=== PATIENT | male | born 1945 | race Caucasian/White ===

== ENCOUNTER 2020-11-11 08:23 | Outpatient (REF) | payer MEDICARE, SELFPAY ==
[2020-11-11 11:35] LABS: Hematocrit 45.9 % (42-52); Hemoglobin 15.2 g/dl (14.0-18.0); Mean Corpuscular HGB Conc 33.1 g/dl (31.0-36.0); Mean Corpuscular Hemoglobin 29.6 pg (27.0-33.0); Mean Corpuscular Volume 89.5 fL (80-98); Mean Platelet Volume 11.4 fL (9.4-12.4); Platelet Count 192 X10*3/uL (160-400); Red Blood Count 5.13 X10*6/uL (4.60-5.80); Red Cell Distribution Width 12.5 % (11.0-16.0); White Blood Count 8.5 X10*3/uL (4.8-10.8)
[2020-11-11 11:59] LABS: Alanine Aminotransferase 13 U/L (0-40); Albumin Level 4.3 g/dL (3.5-5.0); Alkaline Phosphatase 148 U/L (39-117); Anion Gap 14 (12-20); Aspartate Amino Transferase 15 U/L (5-37); Bilirubin Direct 0.4 mg/dL (0.0-0.5); Bilirubin Total 0.9 mg/dL (0.0-1.0); Blood Urea Nitrogen 28 mg/dL (9-16); Calcium 9.3 mg/dL (8.4-10.2); Carbon Dioxide 25 mmol/L (22-29); Chloride 107 mmol/L (96-108); Cholesterol 122 mg/dL; Estimated Glomerular Filt Rate 54; Glucose Random 100 mg/dL (60-115); HDL Cholesterol 32 mg/dL; LDL Cholesterol Calculated 71 mg/dl; Potassium 4.2 mmol/L (3.3-5.1); Sodium 142 mmol/L (135-145); Total Protein 7.1 g/dL (6.5-8.0); Triglycerides 98 mg/dL
[2020-11-11 12:06] LABS: Thyroid Stimulating Hormone 2.91 uIU/mL (0.32-4.0)
[2020-11-12 20:13] LABS: Folate 6.7 ng/mL (> or = 4.0); Vitamin B12 891 pg/mL (200-900)
[2020-11-15 13:17] LABS: Vitamin D 25-OH, D2 <4 ng/mL; Vitamin D 25-OH, D3 19 ng/mL; Vitamin D 25-OH, Total 19 ng/mL (30-100)
== END 2020-11-11 08:24 | disposition home or self-care (01) ==
LOC: HO.HMGCLDS 08:23
PROVIDERS: Absent Provider Internal Medicine Cardiovascular Disease; PCP Internal Medicine; Visit Provider Internal Medicine
DX: I10 Essential (primary) hypertension (principal)
CPT/HCPCS: 36415; 80048; 80061; 80076; 82306; 82607; 82746; 84443; 85027

== ENCOUNTER 2020-12-03 08:28 | Outpatient (REF) | payer MEDICARE, SELFPAY ==
--- NOTE | ~2020-12-03 | US_ITS ---
EXAMINATION: US ABDOMEN COMPLETE CLINICAL INFORMATION: Abnormal liver enzymes. COMPARISON: None. TECHNIQUE: Real-time imaging of the abdominal viscera. Technically difficult study secondary to bowel gas and body habitus. FINDINGS: PANCREAS: The pancreas appears heterogeneous and echogenic but no focal lesion seen. There is probably mild enlargement of the pancreas. The pancreatic duct measures 0.2 cm. ABDOMINAL AORTA: There is mild dilated abdominal aorta measuring 3.7 x 4.1 cm in the distal segment. The patent lumen measures 2.2 x 2.3 cm. The left common iliac artery measures 2.6 x 2.5 cm and right common iliac artery measures 2.8 x 2.8 cm. The proximal and the mid abdominal aorta appears normal caliber. Peak systolic velocity mid abdominal aorta measures 34.4 mL. INFERIOR VENA CAVA: Visualized portions are normal. LIVER: The left hepatic lobe is limited in evaluation secondary to gas. The liver is normal in size. The liver contour is normal. Parenchymal echogenicity is normal. No focal hepatic lesion. There is no intrahepatic biliary duct dilatation seen. GALLBLADDER: The nonmobile echogenic polyp along the anterior gallbladder wall measuring 0.4 x 0.5 x 0.3 cm. No echogenic stones seen. The wall thickness is 0.3 cm. COMMON BILE DUCT: Normal in caliber measuring 0.32 cm in diameter. RIGHT KIDNEY: Normal. No hydronephrosis. No renal calculi or focal parenchymal lesions. The kidney measures 10.6 cm in maximum dimension. LEFT KIDNEY: Normal. No hydronephrosis. No renal calculi or focal parenchymal lesions. The kidney measures 10.6 cm in maximum dimension. SPLEEN: Normal. The spleen measures 9.8 cm in maximum dimension. FREE FLUID: None. US/US abdomen complete IMPRESSION: Small polyp along the anterior gallbladder wall. No echogenic stones seen. Borderline gallbladder wall thickness. Distal abdominal aortic aneurysm extending into the right and left common iliac arteries. There is significant thrombus in the aneurysmal segment with the true lumen measuring 2.2 x 2.3 cm and aneurysm in distal abdominal aorta measuring 3.7 x 4.1 cm. Slightly heterogenous and mildly enlarged pancreas. Correlate with serum amylase and lipase levels.
== END 2020-12-03 08:29 | disposition home or self-care (01) ==
LOC: HO.HMGCX 08:28
PROVIDERS: Visit Provider Internal Medicine
DX: R74.8 Abnormal levels of other serum enzymes (principal)
CPT/HCPCS: 76700

== ENCOUNTER → 2020-12-18 09:12 | Outpatient (BNVA) | payer MEDICARE, SELFPAY | PROVIDERS: Visit Provider Urology | DX: Z13.9 Encounter for screening, unspecified (principal); N40.1 Benign prostatic hyperplasia with lower urinary tract symptoms; N13.8 Other obstructive and reflux uropathy | CPT/HCPCS: 51798; 81002; 99212 ==

== ENCOUNTER 2021-05-31 06:30 | Outpatient (REF) | payer MEDICARE, SELFPAY ==
[2021-05-31 07:45] LABS: Hematocrit 43.6 % (42-52); Hemoglobin 14.5 g/dl (14.0-18.0); Mean Corpuscular HGB Conc 33.3 g/dl (31.0-36.0); Mean Corpuscular Hemoglobin 29.7 pg (27.0-33.0); Mean Corpuscular Volume 89.2 fL (80-98); Mean Platelet Volume 10.7 fL (9.4-12.4); Platelet Count 182 X10*3/uL (160-400); Red Blood Count 4.89 X10*6/uL (4.60-5.80); Red Cell Distribution Width 12.8 % (11.0-16.0); White Blood Count 8.4 X10*3/uL (4.8-10.8)
[2021-05-31 08:22] LABS: Alanine Aminotransferase 10 U/L (0-40); Alkaline Phosphatase 145 U/L (39-117); Anion Gap 13 (12-20); Aspartate Amino Transferase 15 U/L (5-37); Bilirubin Direct 0.4 mg/dL (0.0-0.5); Bilirubin Total 0.7 mg/dL (0.0-1.0); Blood Urea Nitrogen 25 mg/dL (9-16); Calcium 9.3 mg/dL (8.4-10.2); Carbon Dioxide 24 mmol/L (22-29); Chloride 109 mmol/L (96-108); Cholesterol 114 mg/dL; Estimated Glomerular Filt Rate 44; Glucose Random 95 mg/dL (60-115); HDL Cholesterol 31 mg/dL; LDL Cholesterol Calculated 65 mg/dl; Potassium 4.3 mmol/L (3.3-5.1); Sodium 142 mmol/L (135-145); Total Protein 6.4 g/dL (6.5-8.0); Triglycerides 92 mg/dL
[2021-05-31 08:43] LABS: Prostate Specific Antigen Scr 1.85 ng/mL (<0.05-4.0); Thyroid Stimulating Hormone 3.36 uIU/mL (0.32-4.0)
== END 2021-05-31 06:31 | disposition home or self-care (01) ==
LOC: HO.LAB 06:30
PROVIDERS: PCP Internal Medicine; Visit Provider Internal Medicine
DX: Z12.5 Encounter for screening for malignant neoplasm of prostate (principal); E78.01 Familial hypercholesterolemia; I10 Essential (primary) hypertension; I25.10 Atherosclerotic heart disease of native coronary artery without angina pectoris; N40.0 Benign prostatic hyperplasia without lower urinary tract symptoms
CPT/HCPCS: 36415; 80048; 80061; 80076; 84153; 84443; 85027

== ENCOUNTER → 2021-06-22 10:50 | Outpatient (BNVA) | payer MEDICARE, SELFPAY | PROVIDERS: PCP Internal Medicine; Visit Provider Urology | DX: Z13.89 Encounter for screening for other disorder (principal) | CPT/HCPCS: Q3014 ==

== ENCOUNTER 2021-11-29 06:41 | Outpatient (REF) | payer MEDICARE, SELFPAY ==
[2021-11-29 07:27] LABS: Hematocrit 44.7 % (42.0-52.0); Hemoglobin 14.4 g/dl (14.0-18.0); Mean Corpuscular HGB Conc 32.2 g/dl (31.0-36.0); Mean Corpuscular Hemoglobin 29.1 pg (27.0-33.0); Mean Corpuscular Volume 90.5 fL (80.0-98.0); Mean Platelet Volume 10.6 fL (9.4-12.4); Platelet Count 192 X10*3/uL (160-400); Red Blood Count 4.94 X10*6/uL (4.60-5.80); Red Cell Distribution Width 12.7 % (11.0-16.0); White Blood Count 9.2 X10*3/uL (4.8-10.8)
[2021-11-29 08:01] LABS: Appearance Urine CLEAR; Color Urine YELLOW; Glucose Urine UA NEG (NEG); Leukocyte Esterase Urine NEG (NEG); Nitrite Urine NEG (NEG); Specific Gravity - Urine >= 1.030 (1.005-1.025); Urine Blood NEG (NEG); Urine Ketones NEG (NEG); Urine Protein TRACE MG/DL (NEG-TRACE)
[2021-11-29 08:34] LABS: Alanine Aminotransferase 13 U/L (0-40); Albumin Level 3.9 g/dL (3.5-5.0); Alkaline Phosphatase 159 U/L (39-117); Anion Gap 14 (12-20); Aspartate Amino Transferase 16 U/L (5-37); Bilirubin Direct 0.4 mg/dL (0.0-0.5); Blood Urea Nitrogen 24 mg/dL (9-16); Calcium 9.1 mg/dL (8.4-10.2); Carbon Dioxide 24 mmol/L (22-29); Chloride 109 mmol/L (96-108); Cholesterol 109 mg/dL; Estimated Glomerular Filt Rate 45; Glucose Random 97 mg/dL (60-115); HDL Cholesterol 27 mg/dL; LDL Cholesterol Calculated 63 mg/dl; Potassium 4.3 mmol/L (3.3-5.1); Sodium 143 mmol/L (135-145); Total Protein 6.8 g/dL (6.5-8.0); Triglycerides 99 mg/dL
[2021-11-29 08:42] LABS: Prostate Specific Antigen Scr 1.66 ng/mL (<0.05-4.0); Thyroid Stimulating Hormone 2.73 uIU/mL (0.32-4.0)
== END 2021-11-29 06:42 | disposition home or self-care (01) ==
LOC: HO.LAB 06:41
PROVIDERS: PCP Internal Medicine; Visit Provider Internal Medicine
DX: Z12.5 Encounter for screening for malignant neoplasm of prostate (principal); E78.01 Familial hypercholesterolemia; I10 Essential (primary) hypertension; I25.10 Atherosclerotic heart disease of native coronary artery without angina pectoris; N40.0 Benign prostatic hyperplasia without lower urinary tract symptoms; R74.8 Abnormal levels of other serum enzymes
CPT/HCPCS: 36415; 80048; 80061; 80076; 81003; 84153; 84443; 85027

== ENCOUNTER → 2021-12-21 14:24 | Outpatient (BNVA) | payer MEDICARE, SELFPAY | PROVIDERS: PCP Internal Medicine; Visit Provider Urology | DX: N40.0 Benign prostatic hyperplasia without lower urinary tract symptoms (principal); Z79.899 Other long term (current) drug therapy | CPT/HCPCS: 51798; 99212 ==

== ENCOUNTER 2022-06-06 06:55 | Outpatient (REF) | payer MEDICARE, SELFPAY ==
[2022-06-06 07:45] LABS: Hematocrit 41.4 % (42.0-52.0); Mean Corpuscular HGB Conc 33.8 g/dl (31.0-36.0); Mean Corpuscular Volume 88.7 fL (80.0-98.0); Mean Platelet Volume 10.9 fL (9.4-12.4); Platelet Count 176 X10*3/uL (160-400); Red Blood Count 4.67 X10*6/uL (4.60-5.80); Red Cell Distribution Width 12.7 % (11.0-16.0); White Blood Count 8.7 X10*3/uL (4.8-10.8)
[2022-06-06 07:48] LABS: Appearance Urine Clear; Color Urine Yellow; Glucose Urine UA Negative (Negative); Leukocyte Esterase Urine Trace (Negative); Nitrite Urine Negative (Negative); PH 5.5 (5.0-9.0); Specific Gravity - Urine 1.015 (1.005-1.025); UMIC TRIGGER UA YES; Urine Blood Negative (Negative); Urine Ketones Negative (Negative); Urine Protein Negative (Neg-Trace)
[2022-06-06 07:54] LABS: Bacteria Urine None Seen (None Seen); Hyaline Casts Urine 0-2 /LPF (0-2); RBC Urine 0-2 /HPF (0-2); Squamous Epithelial Cell Urine 0-2 /HPF (0-2); WBC Urine 0-5 /HPF (0-5)
[2022-06-06 08:18] LABS: Alanine Aminotransferase 20 U/L (0-40); Albumin Level 4.2 g/dL (3.5-5.0); Alkaline Phosphatase 157 U/L (39-117); Anion Gap 17 (12-20); Aspartate Amino Transferase 15 U/L (5-37); Bilirubin Direct 0.6 mg/dL (0.0-0.5); Bilirubin Total 1.7 mg/dL (0.0-1.0); Blood Urea Nitrogen 29 mg/dL (9-16); Calcium 9.4 mg/dL (8.4-10.2); Carbon Dioxide 22 mmol/L (22-29); Chloride 106 mmol/L (96-108); Cholesterol 115 mg/dL; Estimated Glomerular Filt Rate 37; Glucose Random 93 mg/dL (60-115); HDL Cholesterol 27 mg/dL; LDL Cholesterol Calculated 61 mg/dl; Potassium 4.5 mmol/L (3.3-5.1); Sodium 140 mmol/L (135-145); Total Protein 6.9 g/dL (6.5-8.0); Triglycerides 138 mg/dL
[2022-06-06 08:32] LABS: Prostate Specific Antigen Scr 1.86 ng/mL (<0.05-4.0)
[2022-06-06 08:41] LABS: Prostate Specific Antigen 1.81 ng/mL (<0.05-4.0); Thyroid Stimulating Hormone 3.16 uIU/mL (0.32-4.0)
== END 2022-06-06 06:56 | disposition home or self-care (01) ==
LOC: HO.LAB 06:55
PROVIDERS: Urology; PCP Internal Medicine; Referring Provider Internal Medicine Cardiovascular Disease; Visit Provider Internal Medicine
DX: Z12.5 Encounter for screening for malignant neoplasm of prostate (principal); N13.8 Other obstructive and reflux uropathy; N40.1 Benign prostatic hyperplasia with lower urinary tract symptoms; E78.01 Familial hypercholesterolemia; I10 Essential (primary) hypertension; I25.10 Atherosclerotic heart disease of native coronary artery without angina pectoris
CPT/HCPCS: 36415; 80048; 80061; 80076; 81001; 84153; 84443; 85027

== ENCOUNTER 2022-12-06 07:00 | Outpatient (REF) | payer MEDICARE, SELFPAY ==
[2022-12-06 07:37] LABS: Hematocrit 44.7 % (42.0-52.0); Hemoglobin 14.4 g/dl (14.0-18.0); Mean Corpuscular HGB Conc 32.2 g/dl (31.0-36.0); Mean Corpuscular Hemoglobin 29.2 pg (27.0-33.0); Mean Corpuscular Volume 90.7 fL (80.0-98.0); Mean Platelet Volume 11.1 fL (9.4-12.4); Platelet Count 182 X10*3/uL (160-400); Red Blood Count 4.93 X10*6/uL (4.60-5.80); Red Cell Distribution Width 12.7 % (11.0-16.0)
[2022-12-06 07:52] LABS: Appearance Urine Clear; Color Urine Yellow; Glucose Urine UA Negative (Negative); Leukocyte Esterase Urine Negative (Negative); Nitrite Urine Negative (Negative); Specific Gravity - Urine 1.015 (1.005-1.025); Urine Blood Negative (Negative); Urine Ketones Negative (Negative); Urine Protein Negative (Neg-Trace)
[2022-12-06 08:24] LABS: Alanine Aminotransferase 12 U/L (0-40); Albumin Level 3.9 g/dL (3.5-5.0); Alkaline Phosphatase 155 U/L (39-117); Anion Gap 14 (12-20); Aspartate Amino Transferase 16 U/L (5-37); Bilirubin Direct 0.3 mg/dL (0.0-0.5); Blood Urea Nitrogen 24 mg/dL (9-16); Calcium 9.2 mg/dL (8.4-10.2); Carbon Dioxide 25 mmol/L (22-29); Chloride 109 mmol/L (96-108); Cholesterol 109 mg/dL; Estimated Glomerular Filt Rate 42; Glucose Random 100 mg/dL (60-115); HDL Cholesterol 30 mg/dL; LDL Cholesterol Calculated 59 mg/dl; Potassium 4.5 mmol/L (3.3-5.1); Sodium 143 mmol/L (135-145); Total Protein 6.5 g/dL (6.5-8.0); Triglycerides 104 mg/dL
[2022-12-06 08:43] LABS: Thyroid Stimulating Hormone 3.55 uIU/mL (0.32-4.0)
== END 2022-12-06 07:01 | disposition home or self-care (01) ==
LOC: HO.LAB 07:00
PROVIDERS: PCP Internal Medicine; Visit Provider Internal Medicine
DX: R74.8 Abnormal levels of other serum enzymes (principal); I25.10 Atherosclerotic heart disease of native coronary artery without angina pectoris; I10 Essential (primary) hypertension; E78.01 Familial hypercholesterolemia
CPT/HCPCS: 36415; 80048; 80061; 80076; 81003; 84443; 85027

== ENCOUNTER → 2022-12-22 08:18 | Outpatient (BNVA) | payer MEDICARE, SELFPAY | PROVIDERS: PCP Internal Medicine; Visit Provider Urology | DX: N40.0 Benign prostatic hyperplasia without lower urinary tract symptoms (principal) | CPT/HCPCS: 51798; 99212 ==

== ENCOUNTER 2023-06-08 08:47 | Outpatient (AMB) | payer MEDICARE, SELFPAY ==
--- NOTE | 2023-06-08 08:57 | MHC.PC.OV ---
Vital Signs 06/08/23 08:58 Height 6 ft 1 in Weight 213 lb 4 oz BMI 28.1 BP 112/72 Blood Pressure Location Lt brachial Position Sitting Intake Visit Reasons: 6mth f/u Intake Note: Patient is here to follow up on HTN. 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 [employer] Fruit Crop Farmer: Present Accompanied by: Spouse Allergies No Known Allergies [No Known Allergies*] Allergy (Verified 06/08/23 08:58) Tobacco use date assessed: 06/08/23 Fall risk assessment: No Falls in past year Last assessed Fall Risk: 06/08/23 Dental Screening Dental Screen Date: 06/08/23 Did you have a dental visit in the last 12 months?: Yes Did you have a dental problem in the last 6 months where you did not have access to dental care?: No Was dental information given to patient?: Patient has dentist HPI 6mth f/u HPI Details 77-year-old male presents to the office to discuss his chronic medical conditions. Patient is at baseline state of health. He is able to function and do all activities of daily living. He is able to drive at night. Independently he is able to take care of his personal hygiene. Blood work from the past has shown a slightly elevated creatinine and liver function tests. [facility] Medical History Infrarenal abdominal aortic aneurysm (AAA) without rupture Peripheral arterial occlusive disease Coronary artery disease Benign prostate hyperplasia Familial hypercholesterolemia Essential (primary) hypertension Surgical History History of tonsillectomy History of angioplasty History of cataract surgery S/P triple vessel bypass Family History Mother No problems noted. Father No problems noted. Other Mental health disorder Social History Housing: House Alcohol intake: current Alcohol intake frequency: does not drink Patient Tobacco Use Status: Former Tobacco user (12 years ago) Quit Date: 12 years ago Tobacco use type: Cigarette Years Smoked: 12 years e-Cigarette/Vaping Use: Never Used Second Hand Smoke Exposure: No service: Yes Current occupational status: retired Cognitive needs: No Hearing needs: No Vision needs: Yes (reading glasses) Questionnaire Thrive Questionnaire Date Thrive assessed: 12/01/22 ALIX-7 AMB Questionnaire ALIX-7 Date ALIX - 7 assessed: 12/01/22 Source: Developed by Drs. Heriberto Odom, Sobeida Abbott, Chris López and colleagues, with an educational tana from [employer]. Physical exam (Primary Care) Vital Signs: Last Vital Signs BP 112/72 06/08/23 08:58 Care Plan Goal for BP management: Blood pressure is stable. Continue medications at same dosage. BMI result Body Mass Index 28.1 Tobacco/Smoking Status: Tobacco use Status Tobacco use date assessed 06/08/23 06/08/23 09:00 Patient Tobacco Use Status Former Tobacco user (12 06/08/23 09:00 years ago) Tobacco use type Cigarette 06/08/23 09:00 e-Cigarette/Vaping Use Never Used 06/08/23 09:00 Thrive Assessment: Date of Thrive Assessment Date Thrive assessed 12/01/22 06/08/23 09:00 Const General: cooperative and healthy appearing Nutritional Appearance: well nourished Orientation/consciousness: patient oriented x3 Limitations: no limitations HENMT Head: Yes normal to inspection Eyes General: appearance normal, both eyes and all related structures Neck Neck: Yes normal visual inspection Chest Chest palpation & inspection: normal palpation of entire chest wall Resp Effort & Inspection: normal respiratory effort Neuro General: patient oriented x3 Assessment and Plan Assessment & Plan (1) Infrarenal abdominal aortic aneurysm (AAA) without rupture: Code(s): I71.43 - Infrarenal abdominal aortic aneurysm, without rupture Plan: Condition is stable. (2) Peripheral arterial occlusive disease: Code(s): I77.9 - Disorder of arteries and arterioles, unspecified Plan: Condition is stable. (3) Coronary artery disease: Code(s): I25.10 - Atherosclerotic heart disease of [place] coronary artery without angina pectoris Plan: Patient was advised to discuss with the news correspondent at his next appointment if he should continue taking Plavix. Patient is having mild renal insufficiency and a repeat blood work has been ordered. (4) Benign prostate hyperplasia: Code(s): N40.0 - Benign prostatic hyperplasia without lower urinary tract symptoms Plan: Continue current medications. (5) Essential (primary) hypertension: Code(s): I10 - Essential (primary) hypertension Plan: Blood pressure is stable. Continue current medications. Coding Level of Care Code Est Pt Level 4 (89276) Diagnoses Infrarenal abdominal aortic aneurysm (AAA) without rupture I71.43 Peripheral arterial occlusive disease I77.9 Coronary artery disease I25.10 Benign prostate hyperplasia N40.0 Essential (primary) hypertension I10
[2023-06-08 08:58] VITALS: BP 112/72; BMI 28.1
== END 2023-06-08 09:31 | disposition home or self-care (01) ==
PROVIDERS: Visit Provider Internal Medicine
DX: I71.43 Infrarenal abdominal aortic aneurysm, without rupture (principal); I77.9 Disorder of arteries and arterioles, unspecified; I10 Essential (primary) hypertension; I25.10 Atherosclerotic heart disease of native coronary artery without angina pectoris; N40.0 Benign prostatic hyperplasia without lower urinary tract symptoms
CPT/HCPCS: 99214

== ENCOUNTER 2023-06-09 06:35 | Outpatient (REF) | payer MEDICARE, SELFPAY ==
[2023-06-09 08:09] LABS: Hematocrit 44.6 % (42.0-52.0); Hemoglobin 14.7 g/dl (14.0-18.0); Mean Corpuscular Hemoglobin 29.8 pg (27.0-33.0); Mean Corpuscular Volume 90.5 fL (80.0-98.0); Mean Platelet Volume 10.8 fL (9.4-12.4); Platelet Count 164 X10*3/uL (160-400); Red Blood Count 4.93 X10*6/uL (4.60-5.80); Red Cell Distribution Width 12.9 % (11.0-16.0); White Blood Count 8.8 X10*3/uL (4.8-10.8)
[2023-06-09 08:40] LABS: Alanine Aminotransferase 13 U/L (0-40); Albumin Level 4.1 g/dL (3.5-5.0); Alkaline Phosphatase 156 U/L (39-117); Anion Gap 13 (12-20); Aspartate Amino Transferase 16 U/L (5-37); Bilirubin Direct 0.3 mg/dL (0.0-0.5); Blood Urea Nitrogen 25 mg/dL (9-16); Calcium 9.6 mg/dL (8.4-10.2); Carbon Dioxide 24 mmol/L (22-29); Chloride 110 mmol/L (96-108); Cholesterol 112 mg/dL (<200); Estimated Glomerular Filt Rate 43; Glucose Random 94 mg/dL (60-115); HDL Cholesterol 32 mg/dL (>40); LDL Cholesterol Calculated 62 mg/dL (<100); Potassium 4.4 mmol/L (3.3-5.1); Sodium 143 mmol/L (135-145); Triglycerides 92 mg/dL (<150)
[2023-06-09 08:46] LABS: Prostate Specific Antigen Scr 2.21 ng/mL (<0.05-4.0)
== END 2023-06-09 06:36 | disposition home or self-care (01) ==
LOC: HO.LAB 06:35
PROVIDERS: PCP Internal Medicine; Referring Provider Internal Medicine Cardiovascular Disease; Visit Provider Internal Medicine
DX: I10 Essential (primary) hypertension (principal); N40.0 Benign prostatic hyperplasia without lower urinary tract symptoms; Z12.5 Encounter for screening for malignant neoplasm of prostate
CPT/HCPCS: 36415; 80048; 80061; 80076; 84153; 85027

== ENCOUNTER 2023-12-04 07:41 | Outpatient (AMB) | payer MEDICARE, SELFPAY ==
[2023-12-04 08:15] VITALS: BP 128/76; PULSE 68; O2SAT 97; BMI 28.0
--- NOTE | 2023-12-04 08:15 | MHC.PC.OV ---
Vital Signs 12/04/23 08:15 Height 6 ft 1 in Weight 212 lb BMI 28.0 BP 128/76 Blood Pressure Location Lt brachial Position Sitting Pulse 68 Pulse Source Pulse Oximeter Pulse Oximetry (%) 97 Oxygen Delivery Method Room Air Intake Visit Reasons: 6mth f/u Allergies No Known Allergies [No Known Allergies*] Allergy (Verified 12/04/23 08:48) Medication List - Last Reconciled 12/04/23 by Avtar Lamar MD aspirin (Adult Low Dose Aspirin) 81 mg PO DAILY atorvastatin 40 mg PO DAILY clopidogrel 75 mg PO DAILY lisinopril 10 mg PO DAILY metoprolol tartrate 25 mg PO BID tamsulosin 0.4 mg PO BEDTIME 90 days vitamin B complex (B Complex-Vitamin B12 tablet) 1 tab PO DAILY Tobacco use date assessed: 12/04/23 Fall risk assessment: No Falls in past year Last assessed Fall Risk: 12/04/23 Dental Screening Dental Screen Date: 12/04/23 Did you have a dental visit in the last 12 months?: Yes Did you have a dental problem in the last 6 months where you did not have access to dental care?: No Was dental information given to patient?: Patient has dentist HPI 6mth f/u HPI Details 78-year-old male presents to the office to discuss his chronic medical conditions. Patient sees his hot saw operator regularly for follow-up on coronary artery disease and infrarenal abdominal aortic aneurysm. He has been advised to take the Plavix indefinitely. He gets the aneurysm monitored serially via ultrasounds. The next 1 is scheduled for March. Patient reports to be in good health and able to do all activities of daily living. He is independent, functional and able to drive. He lives alone with his . Able to take care of all finances at home. [facility] Medical History Infrarenal abdominal aortic aneurysm (AAA) without rupture Peripheral arterial occlusive disease Coronary artery disease Benign prostate hyperplasia Familial hypercholesterolemia Essential (primary) hypertension Surgical History History of tonsillectomy History of angioplasty History of cataract surgery S/P triple vessel bypass Family History Mother No problems noted. Father No problems noted. Other Mental health disorder Social History Housing: House Alcohol intake: current Alcohol intake frequency: does not drink Patient Tobacco Use Status: Former Tobacco user (12 years ago) Quit Date: 12 years ago Tobacco use type: Cigarette Years Smoked: 12 years e-Cigarette/Vaping Use: Never Used Second Hand Smoke Exposure: No service: Yes Current occupational status: retired Cognitive needs: No Hearing needs: No Vision needs: Yes (reading glasses) Questionnaire PHQ-9 Over the last 2 weeks, how often have you been bothered by any of the following problems? 1. Little interest or pleasure in doing things: not at all 2. Feeling down, depressed, or hopeless: not at all 3. Trouble falling or staying asleep, or sleeping too much: not at all 4. Feeling tired or having little energy: not at all 5. Poor appetite or overeating: not at all 6. Feeling bad about yourself - or that you are a failure or have let yourself or your family down: not at all 7. Trouble concentrating on things, such as reading the newspaper or watching television: not at all 8. Moving or speaking so slowly that other people could have noticed. Or the opposite - being so fidgety or restless that you have been moving around a lot more than usual: not at all 9. Thoughts that you would be better off or of hurting yourself in some way: not at all Total score: 0 Depression Screening Interpretation: Negative Depression Screening Done: Yes Source: Developed by Drs. Heriberto Odom, Sobeida Abbott, Chris López and colleagues, with an educational tana from [employer]. Thrive Questionnaire Date Thrive assessed: 12/04/23 I am a: Patient What is your living situation today?: I have a steady place to live Within the past 12 months, did the food you bought not last and you didn't have the money to get more?: Never true Within the past 12 months, did you worry whether your food would run out before you got money to buy more?: Never true Do you have trouble paying for medicines?: No Do you have trouble getting transportation to medical appointments?: No Do you have trouble paying your heating and electricity bill?: No Do you have trouble taking care of your child, family member or friend?: No Do you have trouble with day-to-day activities such as bathing, preparing meals, shopping, managing finances, etc.?: No Are you currently unemployed and looking for a job?: No Are you interested in more education?: No Currently or been in a relationship where the following occur: no concerns reported THRIVE Score: 0 AUDIT C Alcohol Use Questionnaire (AUDIT-C) 1. How often do you have a drink containing alcohol?: Monthly or less 2. How many drinks containing alcohol do you have on a typical day when you are drinking?: 1 or 2 3. How often do you have six or more drinks on one occasion?: Never Total Score: 1 ALIX-7 AMB Questionnaire ALIX-7 Date ALIX - 7 assessed: 12/04/23 Feeling nervous, anxious, or on edge: 0 = Not at all Not being able to stop or control worryin = Not at all Worrying too much about different things: 0 = Not at all Trouble relaxin = Not at all Being so restless that it is hard to sit still: 0 = Not at all Becoming easily annoyed or irritable: 0 = Not at all Feeling afraid as if something awful might happen: 0 = Not at all Total ALIX-7 score (0-4 normal; 5-9 mild; 10-14 moderate; 15-21 severe): 0 Source: Developed by Drs. Heriberto Odom, Sobeida Abbott, Chris López and colleagues, with an educational tana from [employer]. Physical exam (Primary Care) Vital Signs: Last Vital Signs Pulse 68 12/04/23 08:15 BP 128/76 12/04/23 08:15 Pulse Ox 97 12/04/23 08:15 Oxygen Delivery Method Room Air 12/04/23 08:15 Care Plan Goal for BP management: Blood pressure is in range. Continue current medications BMI result Body Mass Index 28.0 Tobacco/Smoking Status: Tobacco use Status Tobacco use date assessed 12/04/23 12/04/23 08:22 Patient Tobacco Use Status Former Tobacco user (12 12/04/23 08:15 years ago) Tobacco use type Cigarette 12/04/23 08:15 e-Cigarette/Vaping Use Never Used 12/04/23 08:15 PHQ-9: PHQ-9 Score PHQ-9: Total score 0 12/04/23 08:22 Depression Screening Interpretation: Negative Thrive Assessment: Date of Thrive Assessment Date Thrive assessed 12/04/23 12/04/23 08:22 Currently or been in a relationship where the following occur: no concerns reported Advance Care Planning discussion: Exists, not on file Date of discussion: 12/04/23 Who was present: Patient and his Forms completed: Health Care Proxy Time spent: 1-15 minutes, on File Actual minutes spent: 5 Const General: cooperative and healthy appearing Nutritional Appearance: well nourished Orientation/consciousness: patient oriented x3 Limitations: no limitations HENMT Head: Yes normal to inspection Eyes General: appearance normal, both eyes and all related structures Neck Neck: Yes normal visual inspection Chest Chest palpation & inspection: normal palpation of entire chest wall Resp Effort & Inspection: normal respiratory effort Neuro General: patient oriented x3 Assessment and Plan Assessment & Plan (1) Infrarenal abdominal aortic aneurysm (AAA) without rupture: Code(s): I71.43 - Infrarenal abdominal aortic aneurysm, without rupture Plan: An ultrasound of the abdomen has been scheduled by his hot saw operator. Encouraged him to get it done. The size of the aneurysm has been stable (2) Peripheral arterial occlusive disease: Code(s): I77.9 - Disorder of arteries and arterioles, unspecified Plan: Continue the Plavix. (3) Coronary artery disease: Code(s): I25.10 - Atherosclerotic heart disease of [place] coronary artery without angina pectoris Plan: Condition is stable. Continue current medications and exercise regimen. (4) Essential (primary) hypertension: Code(s): I10 - Essential (primary) hypertension Plan: Blood pressure is stable. Continue current medications. Orders: Orders Liver Panel Today I10 - Essential (primary) hypertension, I25.10 - Atherosclerotic heart disease of [place] coronary artery without angina pectoris, I71.43 - Infrarenal abdominal aortic aneurysm, without rupture, I77.9 - Disorder of arteries and arterioles, unspecified Thyroid Stimulating Hormone Today I10 - Essential (primary) hypertension, I25.10 - Atherosclerotic heart disease of [place] coronary artery without angina pectoris, I71.43 - Infrarenal abdominal aortic aneurysm, without rupture, I77.9 - Disorder of arteries and arterioles, unspecified Basic Metabolic Panel Today I10 - Essential (primary) hypertension, I25.10 - Atherosclerotic heart disease of [place] coronary artery without angina pectoris, I71.43 - Infrarenal abdominal aortic aneurysm, without rupture, I77.9 - Disorder of arteries and arterioles, unspecified Complete Blood Count no Diff Today I10 - Essential (primary) hypertension, I25.10 - Atherosclerotic heart disease of [place] coronary artery without angina pectoris, I71.43 - Infrarenal abdominal aortic aneurysm, without rupture, I77.9 - Disorder of arteries and arterioles, unspecified Lipid Panel Today I10 - Essential (primary) hypertension, I25.10 - Atherosclerotic heart disease of [place] coronary artery without angina pectoris, I71.43 - Infrarenal abdominal aortic aneurysm, without rupture, I77.9 - Disorder of arteries and arterioles, unspecified UA and rflx microscopic Today I10 - Essential (primary) hypertension, I25.10 - Atherosclerotic heart disease of [place] coronary artery without angina pectoris, I71.43 - Infrarenal abdominal aortic aneurysm, without rupture, I77.9 - Disorder of arteries and arterioles, unspecified Coding Level of Care Code Est Pt Level 4 (28584) Diagnoses Infrarenal abdominal aortic aneurysm (AAA) without rupture I71.43 Peripheral arterial occlusive disease I77.9 Coronary artery disease I25.10 Essential (primary) hypertension I10 Additional Codes Vital Signs *Quality* - Advance Care Planning discussion: Exists, not on file ([id number]) Vital Signs *Quality* - Time spent: 1-15 minutes, on File ([id number])
== END 2023-12-04 08:43 | disposition home or self-care (01) ==
PROVIDERS: PCP Internal Medicine; Visit Provider Internal Medicine
DX: I71.43 Infrarenal abdominal aortic aneurysm, without rupture (principal); I77.9 Disorder of arteries and arterioles, unspecified; I25.10 Atherosclerotic heart disease of native coronary artery without angina pectoris; I10 Essential (primary) hypertension
CPT/HCPCS: 1123F; 99214

== ENCOUNTER 2023-12-04 08:49 | Outpatient (REF) | payer MEDICARE, SELFPAY ==
[2023-12-04 10:41] LABS: Hematocrit 44.4 % (42.0-52.0); Hemoglobin 14.7 g/dl (14.0-18.0); Mean Corpuscular HGB Conc 33.1 g/dl (31.0-36.0); Mean Corpuscular Hemoglobin 29.7 pg (27.0-33.0); Mean Corpuscular Volume 89.7 fL (80.0-98.0); Mean Platelet Volume 10.4 fL (9.4-12.4); Platelet Count 188 X10*3/uL (160-400); Red Blood Count 4.95 X10*6/uL (4.60-5.80); Red Cell Distribution Width 13.1 % (11.0-16.0); White Blood Count 9.3 X10*3/uL (4.8-10.8)
[2023-12-04 10:43] LABS: Appearance Urine Clear; Color Urine Yellow; Glucose Urine UA Negative (Negative); Leukocyte Esterase Urine Negative (Negative); Nitrite Urine Negative (Negative); Urine Blood Negative (Negative); Urine Ketones Negative (Negative); Urine Protein Negative (Neg-Trace)
[2023-12-04 11:25] LABS: Alanine Aminotransferase 16 U/L (0-40); Albumin Level 4.1 g/dL (3.5-5.0); Alkaline Phosphatase 144 U/L (39-117); Anion Gap 12 (12-20); Aspartate Amino Transferase 17 U/L (5-37); Bilirubin Direct 0.4 mg/dL (0.0-0.5); Blood Urea Nitrogen 22 mg/dL (9-16); Calcium 9.2 mg/dL (8.4-10.2); Carbon Dioxide 25 mmol/L (22-29); Chloride 108 mmol/L (96-108); Cholesterol 104 mg/dL (<200); Estimated Glomerular Filt Rate 45; Glucose Random 99 mg/dL (60-115); HDL Cholesterol 30 mg/dL (>40); LDL Cholesterol Calculated 53 mg/dL (<100); Potassium 4.5 mmol/L (3.3-5.1); Sodium 140 mmol/L (135-145); Total Protein 7.1 g/dL (6.5-8.0); Triglycerides 109 mg/dL (<150)
[2023-12-04 11:46] LABS: Thyroid Stimulating Hormone 2.71 uIU/mL (0.32-4.0)
== END 2023-12-04 08:50 | disposition home or self-care (01) ==
LOC: HO.10HDL 08:49
PROVIDERS: Referring Provider Internal Medicine Cardiovascular Disease; Visit Provider Internal Medicine
DX: I71.43 Infrarenal abdominal aortic aneurysm, without rupture (principal); I77.9 Disorder of arteries and arterioles, unspecified; I10 Essential (primary) hypertension; I25.10 Atherosclerotic heart disease of native coronary artery without angina pectoris
CPT/HCPCS: 36415; 80048; 80061; 80076; 81003; 84443; 85027

== ENCOUNTER 2023-12-21 08:21 | Outpatient (AMB) | payer MEDICARE, SELFPAY ==
--- NOTE | 2023-12-21 08:27 | A.OFFVIS_ITS ---
Intake Intake Visit Reasons: 1Y PVR Intake Note: Patient presents today for a yearly follow up on: BPH w LUTS and PVR Meds- Tamsulosin Allergies to Antibiotic- No Known Allergies Blood Thinner- Aspirin Post Void Residual: 27ml Manager Of Regulatory Affairs Required: No Accompanied by: Self / Same As Patient Allergies No Known Allergies [No Known Allergies*] Allergy (Verified 12/21/23 08:40) HPI HPI Comments History of Present Illness Details Nehemias is a very pleasant male. He is a patient of Dr. Upton. He is seen for the following urologic conditions - lower urinary tract symptoms PVR today 25 cc Effective bladder emptying Continue to do well with tamsulosin Happy with current result BERNY normal UA normal Has shown stability since 2019 Responding well to tamsulosin with minimal progression May follow-up p.r.n. His primary care can manage tamsulosin and we are happy to see him back should his symptoms progress or change Lower urinary tract symptoms Prior retention in early 2019 Has done well since with tamsulosin Last PVR 65 cc Current therapy tamsulosin 0.4 mg daily PSA 06/08 1.85, 12/07 1.6, 06/09 1.8, 06/10 2.2 Previous discussion of prostate procedure however he is on blood thinners for femoral graft [facility] Medical History Infrarenal abdominal aortic aneurysm (AAA) without rupture Peripheral arterial occlusive disease Coronary artery disease Benign prostate hyperplasia Familial hypercholesterolemia Essential (primary) hypertension Surgical History History of tonsillectomy History of angioplasty History of cataract surgery S/P triple vessel bypass Family History Mother No problems noted. Father No problems noted. Other Mental health disorder Social History Housing: House Alcohol intake: current Alcohol intake frequency: does not drink Patient Tobacco Use Status: Former Tobacco user (12 years ago) Quit Date: 12 years ago Tobacco use type: Cigarette Years Smoked: 12 years e-Cigarette/Vaping Use: Never Used Second Hand Smoke Exposure: No service: Yes Current occupational status: retired Cognitive needs: No Hearing needs: No Vision needs: Yes (reading glasses) Review of Systems Const Denies chills and Denies fever(s) Card Reports no additional complaints and Denies syncope Resp Denies cough GI Denies abdominal pain and Denies heartburn Reports as per HPI and Denies change in libido Neuro Denies syncope Psych Denies change in libido Endo Denies change in libido Physical Exam Const General: cooperative, healthy appearing, comfortable and no acute distress Orientation/consciousness: patient oriented x3 HEENT Face and sinus: Yes normal facial exam Mouth: moist mucous membranes Neck Neck: Yes normal visual inspection, Yes full ROM and Yes trachea midline Chest Chest palpation & inspection: normal inspection of the chest Resp Effort & Inspection: normal respiratory effort, able to speak in complete sentences and no respiratory distress GI Inspection: Yes normal to inspection Back/Spine/Pelvis Cervical Spine: normal cervical lordosis Thoracic/Lumbar Spine: thoracic and lumbar spine normal to inspection Skin General skin exam: no rashes or lesions noted Neuro General: patient oriented x3, gait normal, tone normal and moves all extremities Extrem General: Yes normal to inspection and Yes capillary refill normal Office Procedures Post Void Residual Post Residual Void Post Void Residual (PVR): 27 [id number] Void Residual by ultrasound Results AMB Urinalysis, Automated UA Leukoctes 0 Oscar/uL Last Edit by Carmelita Leach CMA on 12/21/23 08 :43 UA Nitrite Negative Last Edit by Carmelita Leach CMA on 12/21/23 08: 43 UA Urobilinogen 0.2 mg/dL Last Edit by Carmelita Leach CMA on 4 08:43 UA Protein 0 mg/dL Last Edit by Carmelita Leach CMA on 12/21/23 08:43 UA pH 6.0 Last Edit by Carmelita Leach CMA on 12/21/23 08:43 UA Blood 0 Damien/uL Last Edit by Carmelita Leach CMA on 12/21/23 08:43 UA Specific [place] 1.010 Last Edit by Carmelita Leach CMA on 08:43 UA Ketone Negative Last Edit by Carmelita Leach CMA on 12/21/23 08:4 3 UA Bilirubin 0 mg/dL Last Edit by Carmelita Leach CMA on 12/21/23 08: 43 UA Glucose 0 mg/dL Last Edit by Carmelita Leach CMA on 12/21/23 08:43 Results Reviewed Results Reviewed: Laboratory Last Values Urine pH (Auto) 6.0 12/21/23 08:41 Specific [place] (Auto) 1.010 12/21/23 08:41 Urine Protein (Auto) 0 mg/dL 12/21/23 08:41 Glucose (UA)(Auto) 0 mg/dL 12/21/23 08:41 Urine Ketones (Auto) Negative 12/21/23 08:41 Urine Blood (Auto) 0 Damien/uL 12/21/23 08:41 Urine Nitrite (Auto) Negative 12/21/23 08:41 Urine Bilirubin (Auto) 0 mg/dL 12/21/23 08:41 Urine Urobilinogen (Auto) 0.2 mg/dL 12/21/23 08:41 Leukocyte Esterase (Auto) 0 Oscar/uL 12/21/23 08:41 Assessment & Plan Assessment & Plan (1) Benign prostate hyperplasia: Code(s): N40.0 - Benign prostatic hyperplasia without lower urinary tract symptoms Plan P.r.n. follow-up Orders: Orders AMB Urinalysis Automated Today R33.9 - Retention of urine, unspecified AMB Post Void Residual by ultrasound Today R33.9 - Retention of urine, unspecified Patient Instructions: Imaging studies, laboratory and physical exam results were discussed and reviewed in detail. No major barriers to patient understanding were identified. An opportunity to ask questions regarding the treatment plan was provided. All questions were answered. The patient expressed understanding and agreement with the above treatment plan. The patient is aware they should contact our office by phone for worsening of their current condition or the appearance of new urologic symptoms. Compliance is encouraged with any medications and followup testing that is ordered. It is a privilege to participate in the urologic care of your patient. If you have any questions or concerns regarding treatment for the above conditions, or other urologic issues, please do not hesitate to contact me. The office telephone contact is [phone]. This note is constructed using voice recognition software. While every effort has been made to ensure accuracy sound effects person errors may have been included. Yours sincerely, Dr Gus Grider MD, [facility] - Urology Providers of Expert, Compassionate Care for the Genitourinary System Coding Level of Care Code Est Pt Level 4 (83671) Diagnoses Benign prostate hyperplasia N40.0 CPT Codes Post Residual Void - PVR CPT Code: 36041-[id number] Void Residual by ultrasound ([id number])
== END 2023-12-21 09:04 | disposition home or self-care (01) ==
PROVIDERS: Visit Provider Urology
DX: N40.0 Benign prostatic hyperplasia without lower urinary tract symptoms (principal); R33.9 Retention of urine, unspecified
CPT/HCPCS: 99213

== ENCOUNTER → 2023-12-21 08:21 | Outpatient (BNVA) | payer MEDICARE, SELFPAY | PROVIDERS: Visit Provider Urology | DX: N40.0 Benign prostatic hyperplasia without lower urinary tract symptoms (principal) | CPT/HCPCS: 51798; 81003; 99212 ==

== ENCOUNTER 2024-06-06 08:43 | Outpatient (AMB) | payer MEDICARE, SELFPAY ==
[2024-06-06 08:59] VITALS: BP 112/62; BMI 27.7
--- NOTE | 2024-06-06 08:59 | A.OFFPC_ITS ---
Vital Signs 06/06/24 08:59 Height 6 ft 1 in Weight 210 lb 2 oz BMI 27.7 BP 112/62 Blood Pressure Location Rt brachial Position Sitting Intake Visit Reasons: 6mth f/u Intake Note: Patient is here to follow up on CAD, BPH, HTN. Expressive Therapist Required: No Foreign Exchange Dealer: Present Accompanied by: Spouse Allergies No Known Allergies [No Known Allergies*] Allergy (Verified 06/06/24 08:59) Tobacco use date assessed: 06/06/24 Fall risk assessment: No Falls in past year Last assessed Fall Risk: 06/06/24 Dental Screening Dental Screen Date: 12/04/23 HPI 6mth f/u HPI Details 78-year-old male presents to the office to discuss his chronic medical conditions. Patient is at baseline state of health. He gets periodic evaluations by the materials planner/production planner for the abdominal aortic aneurysm. Able to function and do all activities of daily living. Compliant with medications. [facility] Medical History Infrarenal abdominal aortic aneurysm (AAA) without rupture Peripheral arterial occlusive disease Coronary artery disease Benign prostate hyperplasia Familial hypercholesterolemia Essential (primary) hypertension Surgical History History of tonsillectomy History of angioplasty History of cataract surgery S/P triple vessel bypass Family History Mother No problems noted. Father No problems noted. Other Mental health disorder Social History Housing: House Alcohol intake: current Alcohol intake frequency: does not drink Patient Tobacco Use Status: Former Tobacco user (12 years ago) Tobacco use type: Cigarette Years Smoked: 12 years e-Cigarette/Vaping Use: Never Used Second Hand Smoke Exposure: Yes service: Yes Current occupational status: retired Cognitive needs: No Hearing needs: No Vision needs: Yes (reading glasses) Questionnaire Thrive Questionnaire Date Thrive assessed: 12/04/23 Are you currently unemployed and looking for a job?: No ALIX-7 AMB Questionnaire ALIX-7 Date ALIX - 7 assessed: 12/04/23 Source: Developed by Drs. Heriberto Odom, Sobeida B.W. Chris Abbott and colleagues, with an educational tana from [employer]. Physical exam (Primary Care) Vital Signs: Last Vital Signs BP 112/62 06/06/24 08:59 BMI result Body Mass Index 27.7 Tobacco/Smoking Status: Tobacco use Status Tobacco use date assessed 06/06/24 06/06/24 09:01 Patient Tobacco Use Status Former Tobacco user (12 06/06/24 09:01 years ago) Tobacco use type Cigarette 06/06/24 09:01 e-Cigarette/Vaping Use Never Used 06/06/24 09:01 Thrive Assessment: Date of Thrive Assessment Date Thrive assessed 12/04/23 06/06/24 09:01 Const General: cooperative and healthy appearing Nutritional Appearance: well nourished Orientation/consciousness: patient oriented x3 Limitations: no limitations HENMT Head: Yes normal to inspection Eyes General: appearance normal, both eyes and all related structures Neck Neck: Yes normal visual inspection Chest Chest palpation & inspection: normal palpation of entire chest wall Resp Effort & Inspection: normal respiratory effort Neuro General: patient oriented x3 Assessment and Plan Assessment & Plan (1) Infrarenal abdominal aortic aneurysm (AAA) without rupture: Code(s): I71.43 - Infrarenal abdominal aortic aneurysm, without rupture Plan: Condition is stable and patient is up-to-date on screening ultrasound. (2) Peripheral arterial occlusive disease: Code(s): I77.9 - Disorder of arteries and arterioles, unspecified Plan: Condition is stable. (3) Abnormal liver enzymes: Code(s): R74.8 - Abnormal levels of other serum enzymes Plan: Blood work has been ordered. Will call with results. (4) Benign prostate hyperplasia: Code(s): N40.0 - Benign prostatic hyperplasia without lower urinary tract symptoms Plan: PSA has been ordered. I will be refilling his prescriptions. (5) Essential (primary) hypertension: Code(s): I10 - Essential (primary) hypertension Plan: Blood pressure is in range. Continue current medications. (6) Familial hypercholesterolemia: Code(s): E78.01 - Familial hypercholesterolemia Plan: LDL is in range. Continue current medications. Orders: Orders Complete Blood Count no Diff Today E78.01 - Familial hypercholesterolemia, I10 - Essential (primary) hypertension, I71.43 - Infrarenal abdominal aortic aneurysm, without rupture, I77.9 - Disorder of arteries and arterioles, unspecified, N40.0 - Benign prostatic hyperplasia without lower urinary tract symptoms, R74.8 - Abnormal levels of other serum enzymes Basic Metabolic Panel Today E78.01 - Familial hypercholesterolemia, I10 - Essential (primary) hypertension, I71.43 - Infrarenal abdominal aortic aneurysm, without rupture, I77.9 - Disorder of arteries and arterioles, unspecified, N40.0 - Benign prostatic hyperplasia without lower urinary tract symptoms, R74.8 - Abnormal levels of other serum enzymes Lipid Panel Today E78.01 - Familial hypercholesterolemia, I10 - Essential (primary) hypertension, I71.43 - Infrarenal abdominal aortic aneurysm, without rupture, I77.9 - Disorder of arteries and arterioles, unspecified, N40.0 - Benig n prostatic hyperplasia without lower urinary tract symptoms, R74.8 - Abnormal levels of other serum enzymes UA and rflx microscopic Today E78.01 - Familial hypercholesterolemia, I10 - Essential (primary) hypertension, I71.43 - Infrarenal abdominal aortic aneurysm, without rupture, I77.9 - Disorder of arteries and arterioles, unspecified, N40.0 - Benign prostatic hyperplasia without lower urinary tract symptoms, R74.8 - Abnormal levels of other serum enzymes Liver Panel Today E78.01 - Familial hypercholesterolemia, I10 - Essential (primary) hypertension, I71.43 - Infrarenal abdominal aortic aneurysm, without rupture, I77.9 - Disorder of arteries and arterioles, unspecified, N40.0 - Benign prostatic hyperplasia without lower urinary tract symptoms, R74.8 - Abnormal levels of other serum enzymes Thyroid Stimulating Hormone Today E78.01 - Familial hypercholesterolemia, I10 - Essential (primary) hypertension, I71.43 - Infrarenal abdominal aortic aneurysm, without rupture, I77.9 - Disorder of arteries and arterioles, unspecified, N40.0 - Benign prostatic hyperplasia without lower urinary tract symptoms, R74.8 - Abnormal levels of other serum enzymes Prostate Specific Antigen Scr Today N40.0 - Benign prostatic hyperplasia without lower urinary tract symptoms Coding Level of Care Code Est Pt Level 4 (32563) Complex EM visit Add On G2211 Diagnoses Infrarenal abdominal aortic aneurysm (AAA) without rupture I71.43 Peripheral arterial occlusive disease I77.9 Abnormal liver enzymes R74.8 Benign prostate hyperplasia N40.0 Essential (primary) hypertension I10 Familial hypercholesterolemia E78.01
== END 2024-06-06 09:59 | disposition home or self-care (01) ==
PROVIDERS: PCP Internal Medicine; Visit Provider Internal Medicine
DX: I71.43 Infrarenal abdominal aortic aneurysm, without rupture (principal); I77.9 Disorder of arteries and arterioles, unspecified; R74.8 Abnormal levels of other serum enzymes; N40.0 Benign prostatic hyperplasia without lower urinary tract symptoms; I10 Essential (primary) hypertension; E78.01 Familial hypercholesterolemia

== ENCOUNTER 2024-06-06 08:43 | Outpatient (REF) | payer MEDICARE, SELFPAY ==
[2024-06-06 10:43] LABS: Hematocrit 43.1 % (42.0-52.0); Hemoglobin 14.4 g/dl (14.0-18.0); Mean Corpuscular HGB Conc 33.4 g/dl (31.0-36.0); Mean Corpuscular Hemoglobin 30.1 pg (27.0-33.0); Mean Platelet Volume 10.4 fL (9.4-12.4); Platelet Count 182 X10*3/uL (160-400); Red Blood Count 4.79 X10*6/uL (4.60-5.80); Red Cell Distribution Width 12.9 % (11.0-16.0)
[2024-06-06 11:17] LABS: Alanine Aminotransferase 15 U/L (0-40); Albumin Level 4.2 g/dL (3.5-5.0); Alkaline Phosphatase 149 U/L (39-117); Anion Gap 10 (12-20); Aspartate Amino Transferase 16 U/L (5-37); Bilirubin Direct 0.3 mg/dL (0.0-0.5); Bilirubin Total 0.9 mg/dL (0.0-1.0); Blood Urea Nitrogen 24 mg/dL (9-16); Calcium 9.6 mg/dL (8.4-10.2); Carbon Dioxide 28 mmol/L (22-29); Chloride 109 mmol/L (96-108); Cholesterol 110 mg/dL (<200); Estimated Glomerular Filt Rate 44; Glucose Random 98 mg/dL (60-115); HDL Cholesterol 35 mg/dL (>40); LDL Cholesterol Calculated 60 mg/dL (<100); Potassium 4.8 mmol/L (3.3-5.1); Sodium 142 mmol/L (135-145); Total Protein 7.3 g/dL (6.5-8.0); Triglycerides 76 mg/dL (<150)
[2024-06-06 11:18] LABS: Appearance Urine Clear; Color Urine Yellow; Glucose Urine UA Negative (Negative); Leukocyte Esterase Urine Negative (Negative); Nitrite Urine Negative (Negative); Specific Gravity - Urine 1.015 (1.005-1.025); Urine Blood Negative (Negative); Urine Ketones Negative (Negative); Urine Protein Negative (Neg-Trace)
[2024-06-06 11:27] LABS: Prostate Specific Antigen Scr 2.35 ng/mL (<0.05-4.0)
[2024-06-06 11:34] LABS: Thyroid Stimulating Hormone 1.99 uIU/mL (0.32-4.0)
== END 2024-06-06 08:44 | disposition home or self-care (01) ==
LOC: HO.LAB 08:43
PROVIDERS: PCP Internal Medicine; Visit Provider Internal Medicine
DX: I71.43 Infrarenal abdominal aortic aneurysm, without rupture (principal); I77.9 Disorder of arteries and arterioles, unspecified; R74.8 Abnormal levels of other serum enzymes; N40.0 Benign prostatic hyperplasia without lower urinary tract symptoms; I10 Essential (primary) hypertension; E78.01 Familial hypercholesterolemia; Z79.899 Other long term (current) drug therapy; Z12.5 Encounter for screening for malignant neoplasm of prostate
CPT/HCPCS: 36415; 80048; 80061; 80076; 81003; 84153; 84443; 85027; 99212

== ENCOUNTER 2024-12-05 12:35 | Outpatient (AMB) | payer MEDICARE, SELFPAY ==
[2024-12-05 12:57] VITALS: BP 138/86; PULSE 87; O2SAT 98; BMI 27.6
--- NOTE | 2024-12-05 12:57 | MHC.PC.OV ---
Vital Signs 12/05/24 12:57 Height 6 ft 1 in Weight 209 lb 4 oz BMI 27.6 BP 138/86 Blood Pressure Location Lt brachial Position Sitting Pulse 87 Pulse Source Pulse Oximeter Pulse Oximetry (%) 98 Oxygen Delivery Method Room Air Intake Visit Reasons: 6 month follow up Flight Operations Dispatch Clerk Required: No Accompanied by: Spouse Allergies No Known Allergies [No Known Allergies*] Allergy (Verified 12/05/24 15:08) Medication List - Last Reconciled 12/05/24 by Zuri Carranza PA-C aspirin (Adult Low Dose Aspirin) 81 mg PO DAILY atorvastatin 40 mg PO DAILY clopidogrel 75 mg PO DAILY lisinopril 10 mg PO DAILY metoprolol tartrate 25 mg PO BID tamsulosin 0.4 mg PO BEDTIME 90 days vitamin B complex (B Complex-Vitamin B12 tablet) 1 tab PO DAILY Tobacco use date assessed: 12/05/24 Fall risk assessment: No Falls in past year Last assessed Fall Risk: 12/05/24 Dental Screening Dental Screen Date: 12/05/24 Did you have a dental visit in the last 12 months?: Yes Did you have a dental problem in the last 6 months where you did not have access to dental care?: No Was dental information given to patient?: Patient has dentist [facility] Medical History (Updated 12/05/24 @ 15:11 by Zuri Carranza PA-C) Colonoscopy refused Follow-up exam, 3-6 months since previous exam CKD (chronic kidney disease) Infrarenal abdominal aortic aneurysm (AAA) without rupture Peripheral arterial occlusive disease Coronary artery disease Benign prostate hyperplasia Familial hypercholesterolemia Essential (primary) hypertension Surgical History History of tonsillectomy History of angioplasty History of cataract surgery S/P triple vessel bypass Family History Mother No problems noted. Father No problems noted. Other Mental health disorder Social History Housing: House Alcohol intake: current Alcohol intake frequency: does not drink Patient Tobacco Use Status: Former Tobacco user (12 years ago) Tobacco use type: Cigarette Years Smoked: 12 years e-Cigarette/Vaping Use: Never Used Second Hand Smoke Exposure: Yes service: Yes Current occupational status: retired Cognitive needs: No Hearing needs: No Vision needs: Yes (reading glasses) Questionnaire PHQ-9 Over the last 2 weeks, how often have you been bothered by any of the following problems? 1. Little interest or pleasure in doing things: not at all 2. Feeling down, depressed, or hopeless: not at all 3. Trouble falling or staying asleep, or sleeping too much: not at all 4. Feeling tired or having little energy: not at all 5. Poor appetite or overeating: not at all 6. Feeling bad about yourself - or that you are a failure or have let yourself or your family down: not at all 7. Trouble concentrating on things, such as reading the newspaper or watching television: not at all 8. Moving or speaking so slowly that other people could have noticed. Or the opposite - being so fidgety or restless that you have been moving around a lot more than usual: not at all 9. Thoughts that you would be better off or of hurting yourself in some way: not at all Total score: 0 Depression Screening Interpretation: Negative Depression Screening Done: Yes 24839 - PHQ-9 Billing: Yes Source: Developed by Drs. Heriberto Odom, Sobeida Abbott, Chris López and colleagues, with an educational tana from [employer]. Thrive Questionnaire Date Thrive assessed: 12/05/24 I am a: Patient What is your living situation today?: I have a steady place to live Within the past 12 months, did the food you bought not last and you didn't have the money to get more?: Never true Within the past 12 months, did you worry whether your food would run out before you got money to buy more?: Never true Do you have trouble paying for medicines?: No Do you have trouble getting transportation to medical appointments?: No Do you have trouble paying your heating and electricity bill?: No Do you have trouble taking care of your child, family member or friend?: No Do you have trouble with day-to-day activities such as bathing, preparing meals, shopping, managing finances, etc.?: No Are you currently unemployed and looking for a job?: No Are you interested in more education?: No Please select the resources that you would like help with: None Currently or been in a relationship where the following occur: No concerns reported THRIVE Score: 0 AUDIT C Alcohol Use Questionnaire (AUDIT-C) 1. How often do you have a drink containing alcohol?: Monthly or less 2. How many drinks containing alcohol do you have on a typical day when you are drinking?: 1 or 2 3. How often do you have six or more drinks on one occasion?: Never Total Score: 1 Score Reviewed/Action Taken: No ALIX-7 AMB Questionnaire ALIX-7 Date ALIX - 7 assessed: 12/05/24 Feeling nervous, anxious, or on edge: 0 = Not at all Not being able to stop or control worryin = Not at all Worrying too much about different things: 0 = Not at all Trouble relaxin = Not at all Being so restless that it is hard to sit still: 0 = Not at all Becoming easily annoyed or irritable: 0 = Not at all Feeling afraid as if something awful might happen: 0 = Not at all Total ALIX-7 score (0-4 normal; 5-9 mild; 10-14 moderate; 15-21 severe): 0 Source: Developed by Drs. Heriberto Odom, Sobeida Abbott, Chris López and colleagues, with an educational tana from [employer]. ALIX-7 Assessment Billing ALIX-7 Assessment Tool: ALIX-7 Assessment 85477 Physical exam (Primary Care) Vital Signs: Last Vital Signs Pulse 87 12/05/24 12:57 BP 138/86 12/05/24 12:57 Pulse Ox 98 12/05/24 12:57 Oxygen Delivery Method Room Air 12/05/24 12:57 Care Plan Goal for BP management: <130/80 at Goal BMI result Body Mass Index 27.6 BMI Assessment/Plan discussion: High BMI High, discussed plan: lifestyle, weight reduction, dietary, physical activity and alcohol moderation Tobacco/Smoking Status: Tobacco use Status Tobacco use date assessed 12/05/24 12/05/24 12:58 Patient Tobacco Use Status Former Tobacco user (12 12/05/24 12:58 years ago) Tobacco use type Cigarette 12/05/24 12:58 e-Cigarette/Vaping Use Never Used 12/05/24 12:58 PHQ-9: PHQ-9 Score PHQ-9: Total score 0 12/05/24 12:58 Depression Screening Interpretation: Negative Thrive Assessment: Date of Thrive Assessment Date Thrive assessed 12/05/24 12/05/24 12:58 Currently or been in a relationship where the following occur: No concerns reported Coding Level of Care Code Est Pt Level 4 (78049) Complex EM visit Add On G2211 Diagnoses Follow-up exam, 3-6 months since previous exam Z09 CKD (chronic kidney disease) N18.9 Infrarenal abdominal aortic aneurysm (AAA) without rupture I71.43 Peripheral arterial occlusive disease I77.9 Coronary artery disease I25.10 Benign prostate hyperplasia N40.0 Familial hypercholesterolemia E78.01 Essential (primary) hypertension I10 Abnormal liver enzymes R74.8 Additional Codes PHQ-9 - 68933 - PHQ-9 Billing: Yes ([id number]) ALIX-7 Assessment Billing - ALIX-7 Assessment Tool: ALIX-7 Assessment 15264 ([id number]) Assessment & Plan Assessment & Plan (1) Follow-up exam, 3-6 months since previous exam: Code(s): Z09 - Encounter for follow-up examination after completed treatment for conditions other than malignant neoplasm Category: Medical (2) CKD (chronic kidney disease): Code(s): N18.9 - Chronic kidney disease, unspecified Category: Medical Plan: Patient was CKD with BUN of 24 and creatinine of 1.52. Condition is chronic and stable continue to monitor. (3) Infrarenal abdominal aortic aneurysm (AAA) without rupture: Code(s): I71.43 - Infrarenal abdominal aortic aneurysm, without rupture Category: Medical Plan: Patient currently being followed by cardiology. Patient currently on aspirin 81 mg daily, atorvastatin 40 mg daily, Plavix 75 mg daily, lisinopril 10 mg daily, metoprolol 25 mg p.o. b.i.d.. Condition is chronic and stable continue to monitor. (4) Peripheral arterial occlusive disease: Code(s): I77.9 - Disorder of arteries and arterioles, unspecified Category: Medical Plan: Patient currently being followed by cardiology. Patient currently on aspirin 81 mg daily, atorvastatin 40 mg daily, Plavix 75 mg daily, lisinopril 10 mg daily, metoprolol 25 mg p.o. b.i.d.. Condition is chronic and stable continue to monitor. (5) Coronary artery disease: Code(s): I25.10 - Atherosclerotic heart disease of [place] coronary artery without angina pectoris Category: Medical Plan: Patient currently being followed by cardiology. Patient currently on aspirin 81 mg daily, atorvastatin 40 mg daily, Plavix 75 mg daily, lisinopril 10 mg daily, metoprolol 25 mg p.o. b.i.d.. Condition is chronic and stable continue to monitor. (6) Benign prostate hyperplasia: Code(s): N40.0 - Benign prostatic hyperplasia without lower urinary tract symptoms Category: Medical Plan: The patient is currently on Tamsulosin 0.4 mg p.o. at bedtime. Condition is chronic and stable continue to monitor. (7) Familial hypercholesterolemia: Code(s): E78.01 - Familial hypercholesterolemia Category: Medical Plan: Triglycerides Goal <150. total cholesterol <200. LDL Goal <100. HDL>40. PATIENT HAD LABS ON 06/06/2024 REVEALED TRIGLYCERIDE 276, TOTAL CHOLESTEROL 110, LDL 60 AND HDL 35. PATIENT TO CONTINUE ATORVASTATIN 40 MG DAILY. CONDITION IS CHRONIC AND STABLE CONTINUE TO MONITOR. (8) Essential (primary) hypertension: Code(s): I10 - Essential (primary) hypertension Category: Medical Plan: BP Goal <130/80. Patient's blood pressure at goal today will continue aspirin 81 mg, atorvastatin 40 mg, Plavix 75 mg daily, lisinopril 10 mg daily, metoprolol 25 mg p.o. b.i.d.. Patient to continue being followed by Cardiology. Condition is chronic and stable continue to monitor. (9) Abnormal liver enzymes: Code(s): R74.8 - Abnormal levels of other serum enzymes Category: Medical Plan: Patient has an elevated alkaline phosphate of 149. Denies any abdominal pain. Condition is chronic and stable continue to monitor. Plan Plan Patient was informed and verbally consented to the use of an ambient scribe for clinic note documentation during this visit. 1. Coronary Artery Disease Continued dual antiplatelet therapy prescribed, with regular acoustical tile drill press operator oversight. 2. Hyperlipidemia Lipid control with atorvastatin is assessed during visits, adjusting based on laboratory results. 3. Chronic Kidney Disease The patient?s chronic kidney disease is monitored through stable lab results, with a nephrology referral arranged for possible medication reassessment. 4. Intrarenal Aortic Aneurysm Ongoing observation, advised in regular specialist evaluations. 5. Disorder of arteries and arterioles, unspecified I77.9 HCC 108 Leg tightness during activity controlled by resting, routine imaging maintained. 6. Raynaud's Syndrome Continuation of observational approach due to unresponsiveness to previous interventions. 7. Benign Prostatic Hyperplasia Managed with ongoing tamulosin therapy. 8. Abnormal levels of other serum enzymes R74.8 Monitoring through periodic liver function tests remains in place, awaiting further analysis if indicated. 9. Hypertension Managed with continued lisinopril and metoprolol therapy, monitoring for long-term complications. Discussion Notes During the consultation, we discussed the stability of chronic kidney disease with a creatinine level of 1.52 mg/dL. The continuation of the current medication regimen was considered appropriate, especially regarding lisinopril?s potential impact, given its longstanding use and efficacy. The patient was advised on possible nephrology consultation for an expert opinion on medication adjustment. The importance of ongoing dual antiplatelet therapy for coronary artery disease prevention was emphasized, aligning with the acoustical tile drill press operator?s recommendations. Options for investigating persistent Raynaud?s symptoms include symptom monitoring due to prior ineffective pharmacological intervention. Laboratory tests were ordered, including CBC, CMP, and others, to evaluate comprehensive health status and necessary adjustments were discussed. Orders: Orders Comprehensive [place]. Panel Fast Today Z00.00 - Encounter for general adult medical examination without abnormal findings Hemoglobin A1c Today Z00.00 - Encounter for general adult medical examination without abnormal findings Lipid Panel Today Z00.00 - Encounter for general adult medical examination without abnormal findings Magnesium Today Z00.00 - Encounter for general adult medical examination without abnormal findings Parathyroid Hormone Intact Today Z00.00 - Encounter for general adult medical examination without abnormal findings Vitamin B12 and Folate Today Z00.00 - Encounter for general adult medical examination without abnormal findings Vitamin B1 Today Z00.00 - Encounter for general adult medical examination without abnormal findings TSH reflex Free T4 Today Z00.00 - Encounter for general adult medical examination without abnormal findings Zinc Today Z00.00 - Encounter for general adult medical examination without abnormal findings C Reactive Protein Today Z00.00 - Encounter for general adult medical examination without abnormal findings Complete Blood Count Auto Diff Today Z00.00 - Encounter for general adult medical examination without abnormal findings Erythrocyte Sedimentation Rate Today Z00.00 - Encounter for general adult medical examination without abnormal findings Liver Panel Today Z00.00 - Encounter for general adult medical examination without abnormal findings Vitamin D 25-OH Total Today Z00.00 - Encounter for general adult medical examination without abnormal findings PSA,Total (Free>4and<10) Today Z00.00 - Encounter for general adult medical examination without abnormal findings Referrals Nephrology Referral N18.9 - Chronic kidney disease, unspecified Patient Instructions: Patient Instructions - Maintain current medication regimen as prescribed. - Schedule and attend nephrology appointment as planned. - Follow up with regular blood work including fasting as advised. - Continue daily physical activity but rest during leg tightness or discomfort. - Report any new or worsening symptoms, specifically unusual leg pain or chest discomfort. - Return for scheduled follow-up appointment in one month. Scribe Plan - Not visible on output: History of Present Illness The patient is an 79-year-old male presenting for a routine six-month follow-up visit. He has a known history of chronic kidney disease with a stable creatinine level of 1.52 mg/dL, unchanged since 2019. The patient has not consulted a knitting tester for this condition, as it is managed by his acoustical tile drill press operator emphasizing stroke prevention via continued Plavix therapy. His medical history is significant for an intrarenal aortic aneurysm without rupture, peripheral arterial occlusive disease, abnormal liver enzymes, coronary artery disease, benign prostatic hyperplasia, hyperlipidemia, and hypertension. He adheres to a structured medication regimen including Plavix, aspirin, atorvastatin, lisinopril, metoprolol, tamulosin, and vitamin B complex. The patient also reports Raynaud?s syndrome, characterized by cold and dark hand extremities. Regular physical activity involves walking daily, though he experiences leg muscle tightening on prolonged walking, relieved briefly by rest. He undergoes leg ultrasounds biannually per acoustical tile drill press operator recommendations due to past cardiac bypass surgery, supervised by Dr. Saleem. Social History - The patient regularly engages in physical exercise, specifically walking almost daily. - He reports adherence to his prescribed medication regimen. Review of Systems - Cardiovascular: Reports leg tightness during walking, resolving with short breaks. - Integumentary: Reports cold and dark hands, likely Raynaud?s phenomenon. Physical Exam Appearance: Alert. Oriented X3. No acute distress. Head: Normal external exam. Normocephalic. Atraumatic. Eyes: Pupils are equal, round, and reactive to light. Extraocular movements intact. Conjunctiva and sclera normal. Eyelids normal. Ears: External auditory canal normal. Tympanic membranes normal. Throat: Pharynx normal. Uvula midline. Moist mucous membranes. Neck: Normal inspection. Neck supple. Full range of motion. No adenopathy. Thyroid Normal. No meningeal signs. No neck mass noted. Cardiovascular: Normal heart rate and rhythm. Heart sound normal. No murmurs noted. Pulses normal throughout. Respiratory: No respiratory distress. Painless inspiration. Breath sounds normal. No wheezes/rales/rhonchi noted. Chest nontender. No accessory muscle usage noted or decreased air movement noted. Abdomen: Soft and nontender. Bowel sounds normal in all 4 quadrants. No distention noted. No organomegaly noted. No visible injury noted. Back: No costovertebral angle tenderness. Full range of motion noted. Skin: Skin warm and dry. Normal skin color. Normal skin turgor. No rashes/lesions/lacerations noted. Hands are dark and cold, likely due to Raynaud's syndrome. Extremities: No lower extremity edema. Extremities exhibit normal range of motion. Extremities nontender. Legs tighten up after walking long distances but recover after rest. Neuro: Oriented X 3. No motor deficit. No sensory deficit. Reflexes normal. Results - Labs: Creatinine stable at 1.52 mg/dL since 2019.
== END 2024-12-05 13:50 | disposition home or self-care (01) ==
LOC: HO.HMCH 12:35
PROVIDERS: PCP Internal Medicine; Visit Provider Physician Assistant Medical
DX: I12.9 Hypertensive chronic kidney disease with stage 1 through stage 4 chronic kidney disease, or unspecified chronic kidney disease (principal); N18.9 Chronic kidney disease, unspecified; I71.43 Infrarenal abdominal aortic aneurysm, without rupture; I77.9 Disorder of arteries and arterioles, unspecified; Z09 Encounter for follow-up examination after completed treatment for conditions other than malignant neoplasm; I25.10 Atherosclerotic heart disease of native coronary artery without angina pectoris; N40.0 Benign prostatic hyperplasia without lower urinary tract symptoms; E78.01 Familial hypercholesterolemia; R74.8 Abnormal levels of other serum enzymes

== ENCOUNTER → 2024-12-05 12:35 | Outpatient (BNVA) | payer MEDICARE, SELFPAY | PROVIDERS: PCP Internal Medicine; Visit Provider Physician Assistant Medical | DX: Z09 Encounter for follow-up examination after completed treatment for conditions other than malignant neoplasm (principal); I12.9 Hypertensive chronic kidney disease with stage 1 through stage 4 chronic kidney disease, or unspecified chronic kidney disease; N18.9 Chronic kidney disease, unspecified; I71.43 Infrarenal abdominal aortic aneurysm, without rupture; I77.9 Disorder of arteries and arterioles, unspecified; I25.10 Atherosclerotic heart disease of native coronary artery without angina pectoris; N40.0 Benign prostatic hyperplasia without lower urinary tract symptoms; E78.01 Familial hypercholesterolemia; R74.8 Abnormal levels of other serum enzymes | CPT/HCPCS: 96127; 99212 ==

== ENCOUNTER 2024-12-06 06:42 | Outpatient (REF) | payer MEDICARE, SELFPAY ==
[2024-12-06 07:02] LABS: MANUAL DIFF FLAG NO
[2024-12-06 07:22] LABS: Basophils Percent Auto 0.3 % (0-2); Eosinophils Absolute Auto 0.5 X10*3/uL (0.0-0.4); Eosinophils Percent Auto 5.1 % (0-4); Hematocrit 44.7 % (42.0-52.0); Hemoglobin 14.6 g/dl (14.0-18.0); Imm Gran Abs Auto 0.03 X10*3/uL (0.00-0.03); Imm Gran Pct Auto 0.3 % (0.0-0.4); Lymphocytes Absolute Auto 2.7 X10*3/uL (1.2-4.9); Mean Corpuscular HGB Conc 32.7 g/dl (31.0-36.0); Mean Corpuscular Hemoglobin 29.4 pg (27.0-33.0); Mean Corpuscular Volume 90.1 fL (80.0-98.0); Mean Platelet Volume 10.7 fL (9.4-12.4); Monocytes Absolute Auto 0.9 X10*3/uL (0.1-1.2); Monocytes Percent Auto 8.4 % (2-11); Neutrophils Percent Auto 58.9 % (45-73); Platelet Count 167 X10*3/uL (160-400); Red Blood Count 4.96 X10*6/uL (4.60-5.80); Red Cell Distribution Width 13.2 % (11.0-16.0); White Blood Count 10.1 X10*3/uL (4.8-10.8)
[2024-12-06 07:29] LABS: Estimated Average Glucose 114 mg/dL; Hemoglobin A1c % 5.6 % (<6.0); Total Hemoglobin (HGBA1C) 3821.7371 umol/L
[2024-12-06 07:48] LABS: Parathyroid Hormone Intact 185.7 pg/mL (8.7-77.1)
[2024-12-06 07:51] LABS: Alanine Aminotransferase 13 U/L (0-40); Alkaline Phosphatase 140 U/L (39-117); Anion Gap 11 (12-20); Aspartate Amino Transferase 19 U/L (5-37); Bilirubin Direct 0.3 mg/dL (0.0-0.5); Bilirubin Total 0.9 mg/dL (0.0-1.0); Blood Urea Nitrogen 27 mg/dL (9-16); C Reactive Protein 0.25 mg/dL (< or = 0.50); Calcium 9.3 mg/dL (8.4-10.2); Carbon Dioxide 25 mmol/L (22-29); Chloride 111 mmol/L (96-108); Cholesterol 98 mg/dL (<200); Estimated Glomerular Filt Rate 44; Glucose Fasting 101 mg/dL (60-99); HDL Cholesterol 29 mg/dL (>40); LDL Cholesterol Calculated 51 mg/dL (<100); Potassium 4.8 mmol/L (3.3-5.1); Sodium 142 mmol/L (135-145); Total Protein 7.4 g/dL (6.5-8.0); Triglycerides 94 mg/dL (<150)
[2024-12-06 08:02] LABS: PSA,Total (Free>4and<10) 2.08 ng/mL (0.00-4.00)
[2024-12-06 08:08] LABS: Erythrocyte Sedimentation Rate 6 MM/HR (0-15); TSH reflex Free T4 2.72 uIU/mL (0.32-4.0); Vitamin D 25-OH Total 19.7 ng/mL (>30)
[2024-12-06 08:15] LABS: Folate 9.7 ng/mL (> or = 4.0); Vitamin B12 970 pg/mL (200-900)
[2024-12-09 19:54] LABS: Zinc 59 mcg/dL (60-130)
[2024-12-14 15:13] LABS: Vitamin B1 9 nmol/L (8-30)
== END 2024-12-06 06:43 | disposition home or self-care (01) ==
LOC: HO.LAB 06:42
PROVIDERS: Absent Provider Internal Medicine Cardiovascular Disease; PCP Internal Medicine; Visit Provider Physician Assistant Medical
DX: Z00.00 Encounter for general adult medical examination without abnormal findings (principal); Z12.5 Encounter for screening for malignant neoplasm of prostate; Z13.1 Encounter for screening for diabetes mellitus; Z13.6 Encounter for screening for cardiovascular disorders
CPT/HCPCS: 36415; 80053; 80061; 80076; 82248; 82306; 82607; 82746; 83036; 83735; 83970; 84153; 84425; 84443; 84630; 85025; 85652; 86140

== ENCOUNTER 2024-12-19 08:36 | Outpatient (AMB) | payer MEDICARE, SELFPAY ==
--- NOTE | 2024-12-19 08:54 | A.OFFVIS_ITS ---
Vital Signs 12/19/24 08:58 Height 6 ft 1 in Weight 211 lb 3.245 oz BMI 27.9 BP 128/78 Blood Pressure Location Rt brachial Position Sitting Pulse 79 Pulse Source Pulse Oximeter Pulse Oximetry (%) 96 Oxygen Delivery Method Room Air Intake Visit Reasons: CKD, Vitamin D deficiency Intake Note: New patient internally referred by PCP for Elevated parathyroid hormone, Vitamin D Deficiency, CKD. [employer] Required: No Accompanied by: Spouse Allergies No Known Allergies [No Known Allergies*] Allergy (Verified 12/19/24 08:58) Medication List - Last Reconciled 12/19/24 by Heriberto Blank MD aspirin (Adult Low Dose Aspirin) 81 mg PO DAILY atorvastatin 40 mg PO DAILY cholecalciferol (vitamin D3) 25 mcg PO DAILY clopidogrel 75 mg PO DAILY lisinopril 10 mg PO DAILY metoprolol tartrate 25 mg PO BID tamsulosin 0.4 mg PO BEDTIME 90 days vitamin B complex (B Complex-Vitamin B12 tablet) 1 tab PO DAILY HPI Comments Details: . The patient is an 79-year-old male presenting for evaluation of vitamin D deficiency and elevated parathyroid hormone levels. Recent blood work identified vitamin D level at 19.7 and a PTH level of 185, indicating secondary hyperparathyroidism due to vitamin D deficiency. He has chronic kidney disease stage 3 with stable renal function since 2020 and no previous renal specialist evaluation. No family history of hypercalcemia or kidney stones. First noted to have elevated PTH and decreased kidney function Not Currently using Calcium supplement . Takes 1000 IU of Vitamin D daily stated few wks ago . Not Currently using HCTZ. Kidney stones: No Osteoporosis: No History of [place] use: No Biotin use: No Family history of high calcium or kidney stones: No Renal imaging: [] DXA: Labs: - Labs: Vitamin D level 19.7 ng/mL, PTH level 185 pg/mL - Past GFR levels indicate chronic kidney disease stage 3:2020 GFR 54, recent levels between 37-45 [facility] Medical History (Updated 12/12/24 @ 11:51 by Zuri Carranza PA-C) Zinc deficiency Vitamin D deficiency High serum vitamin B12 Elevated parathyroid hormone Colonoscopy refused Follow-up exam, 3-6 months since previous exam CKD (chronic kidney disease) Infrarenal abdominal aortic aneurysm (AAA) without rupture Peripheral arterial occlusive disease Coronary artery disease Benign prostate hyperplasia Familial hypercholesterolemia Essential (primary) hypertension Surgical History History of tonsillectomy History of angioplasty History of cataract surgery S/P triple vessel bypass Family History Mother No problems noted. Father No problems noted. Other Mental health disorder Social History Housing: House Alcohol intake: current Alcohol intake frequency: does not drink Patient Tobacco Use Status: Former Tobacco user (12 years ago) Tobacco use type: Cigarette Years Smoked: 12 years e-Cigarette/Vaping Use: Never Used Second Hand Smoke Exposure: Yes service: Yes Current occupational status: retired Cognitive needs: No Hearing needs: No Vision needs: Yes (reading glasses) Assessment & Plan Assessment & Plan (1) Elevated parathyroid hormone: Code(s): R79.89 - Other specified abnormal findings of blood chemistry Category: Medical Plan: This 79-year-old white male with a history of secondary hyperparathyroidism most likely related to CKD as well as vitamin-D deficiency. Patient is currently on IU of vitamin D3 1. Vitamin D Deficiency: Plan includes increasing vitamin D3 supplementation to 2000 IU daily to address deficiency and manage secondary hyperparathyroidism. Follow-up labs in 12 weeks to reassess vitamin D level and PTH response will be done at [facility] ([facility]) to eliminate any lab data in terms of measurement of PTH. 2. Secondary Hyperparathyroidism: Monitoring after increasing vitamin D intake. Educated about continued use of dietary supplements to reduce hyperparathyroid activity due to CKD. Once [id number] is replete further assessment by Nephrology to determine whether additional steps suggest addition of activated vitamin-D is necessary to normalized PTH will take place 3. Chronic Kidney Disease Stage 3: Current stage determined stable; emphasis on hydration and limiting nephrotoxic exposure. Pending nephrology evaluation for further management recommendations. I had a comprehensive discussion with the patient regarding his vitamin D deficiency and elevated PTH levels related to CKD. I advised on the importance of increasing vitamin D intake to address these issues, explaining the low risk of vitamin D toxicity and the benefit of potentially reducing hyperparathyroid activity. We also explored CKD implications, ensuring understanding of the vi it required with nephrology. The conversation clarified how managing vitamin D could stabilize his renal function and prevent further deterioration. I had a comprehensive discussion with the patient regarding his vitamin D deficiency and elevated PTH levels related to CKD. I advised on the importance of increasing vitamin D intake to address these issues, explaining the low risk of vitamin D toxicity and the benefit of potentially reducing hyperparathyroid activity. We also explored CKD implications, ensuring understanding of the vi it required with nephrology. The conversation clarified how managing vitamin D could stabilize his renal function and prevent further deterioration. The patient had an opportunity to ask questions regarding treatment plan. The patient expressed understanding and agreement with the above treatment plan. Patient was informed and verbally consented to the use of an ambient scribe for clinic note documentation during this visit. Orders: Orders Albumin Level 3 Months R7. - Other specified abnormal findings of blood chemistry Calcium 3 Months R7. - Other specified abnormal findings of blood chemistry Parathyroid Hormone Intact 3 Months R7.89 - Other specified abnormal findings of blood chemistry Vitamin D 25-OH Total 3 Months R7.89 - Other specified abnormal findings of blood chemistry Coding Level of Care Code New Pt Level 4 (59997) Diagnoses Elevated parathyroid hormone
[2024-12-19 08:58] VITALS: BP 128/78; PULSE 79; O2SAT 96; BMI 27.9
== END 2024-12-19 09:33 | disposition home or self-care (01) ==
LOC: HO.ENCR 08:37
PROVIDERS: PCP Internal Medicine; Visit Provider Internal Medicine Endocrinology, Diabetes & Metabolism
DX: R79.89 Other specified abnormal findings of blood chemistry (principal)
CPT/HCPCS: 99204

== ENCOUNTER → 2024-12-19 08:36 | Outpatient (BNVA) | payer MEDICARE, SELFPAY | PROVIDERS: PCP Internal Medicine; Visit Provider Internal Medicine Endocrinology, Diabetes & Metabolism | DX: R79.89 Other specified abnormal findings of blood chemistry (principal); E55.9 Vitamin D deficiency, unspecified; N18.30 Chronic kidney disease, stage 3 unspecified | CPT/HCPCS: 99202 ==

== ENCOUNTER 2025-01-08 09:32 | Outpatient (AMB) | payer MEDICARE, SELFPAY ==
--- NOTE | 2025-01-08 09:45 | HO.NEPHOV ---
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 He has H/O CAD needing PCI as well as CABG. He also has H/O PAD as well as infra renal AAA. He is hypertensive and is on ACEI. He is on lipid lowering agent as well as plavix. He is not on any SGLT2 i. He denies being diabetic. He has been having difficulty initiating movements and is having unilateral tremors in UE at rest. He does not have any edema, hematuria or orthostatic symptoms. He does not have any new bone or back pain. He does not take excessive NSAID's. His recent serum creatinine has been 1.52 [facility] Medical History (Updated 01/08/25 @ 10:19 by Caleb Powell MD) Zinc deficiency Vitamin D deficiency High serum vitamin B12 Elevated parathyroid hormone Colonoscopy refused Follow-up exam, 3-6 months since previous exam CKD (chronic kidney disease) Infrarenal abdominal aortic aneurysm (AAA) without rupture Peripheral arterial occlusive disease Coronary artery disease Benign prostate hyperplasia Familial hypercholesterolemia Essential (primary) hypertension Surgical History History of tonsillectomy History of angioplasty History of cataract surgery S/P triple vessel bypass Family History Mother No problems noted. Father No problems noted. Other Mental health disorder Social History Housing: House Alcohol intake: current Alcohol intake frequency: does not drink Patient Tobacco Use Status: Former Tobacco user (12 years ago) Tobacco use type: Cigarette Years Smoked: 12 years e-Cigarette/Vaping Use: Never Used Second Hand Smoke Exposure: Yes service: Yes Current occupational status: retired Cognitive needs: No Hearing needs: No Vision needs: Yes (reading glasses) Review of Systems Const All systems reviewed & are unremarkable except as noted in HPI and below Physical Exam Vital Signs: Last Vital Signs Pulse 71 01/08/25 09:47 BP 140/70 H 01/08/25 09:47 Pulse Ox 98 01/08/25 09:47 Oxygen Delivery Method Room Air 01/08/25 09:47 BMI result Body Mass Index 28.0 Const General: comfortable and no acute distress Orientation/consciousness: patient oriented x3 HEENT Head: Yes normocephalic Mouth: Normal oral and palatal mucosa present Eyes EOM: EOMs intact bilaterally Neck Neck: Yes supple Resp Auscultation: clear to auscultation bilaterally Cardio Jugular venous distension: no JVD Rate: regular rate GI Palpation (GI): Soft to palpation Auscultation: normal bowel sounds General: Yes no CVA tenderness Back/Spine/Pelvis Back: no CVA tenderness Skin General skin exam: no rashes or lesions noted Neuro General: patient oriented x3 and moves all extremities Extrem General: Yes no pedal edema Results Reviewed Nephrology Results: Hgb 14.6 g/dl (14.0-18.0) 12/06/24 WBC 10.1 X10*3/uL (4.8-10.8) 12/06/24 Plt Count 167 X10*3/uL (160-400) 12/06/24 Sodium 142 mmol/L (135-145) 12/06/24 Potassium 4.8 mmol/L (3.3-5.1) 12/06/24 Chloride 111 mmol/L (96-108) H 12/06/24 Carbon Dioxide 25 mmol/L (22-29) 12/06/24 BUN 27 mg/dL (9-16) H 12/06/24 Creatinine 1.52 mg/dL (0.5-1.4) H 12/06/24 Calcium 9.3 mg/dL (8.4-10.2) 12/06/24 PTH Intact 185.7 pg/mL (8.7-77.1) H 12/06/24 Urine Protein Negative mg/dL (Neg-Trace) 06/06/24 Assessment & Plan Assessment & Plan (1) Essential (primary) hypertension: Code(s): I10 - Essential (primary) hypertension Category: Medical (2) Vitamin D deficiency: Code(s): E55.9 - Vitamin D deficiency, unspecified Category: Medical (3) CKD stage 3a, GFR 45-59 ml/min: Code(s): N18.31 - Chronic kidney disease, stage 3a Category: Medical (4) Secondary hyperparathyroidism (of renal origin): Code(s): N25.81 - Secondary hyperparathyroidism of renal origin Category: Medical Plan Willy has CKD due to vascular disease. He has H/O CAD needing PCI, CABG, PAD as well as infra renal AAA. His renal functions are stable. His BP needs to be maintained at goal. He is on ACEI. I have ordered W/U including imaging studies. He will be a candidate for SGLT2 i. He has secondary hyperparathyroidism and will need initiation of activated vitamin D with time. He should avoid NSAID's and maintain good hydration. All these have been explained in detail to him and his . He will benefit from Neurology consult to R/O early Parkinsons. Follow up given Orders: Orders Blood Urea Nitrogen 01/08/25 E55.9 - Vitamin D deficiency, unspecified, I10 - Essential (primary) hypertension, N18.31 - Chronic kidney disease, stage 3a, N25.81 - Secondary hyperparathyroidism of renal origin US renal doppler 1 Month N18.31 - Chronic kidney disease, stage 3a, I10 - Essential (primary) hypertension, N25.81 - Secondary hyperparathyroidism of renal origin, E55.9 - Vitamin D deficiency, unspecified Electrolytes 01/08/25 E55.9 - Vitamin D deficiency, unspecified, I10 - Essential (primary) hypertension, N18.31 - Chronic kidney disease, stage 3a, N25.81 - Secondary hyperparathyroidism of renal origin Creatinine 01/08/25 E55.9 - Vitamin D deficiency, unspecified, I10 - Essential (primary) hypertension, N18.31 - Chronic kidney disease, stage 3a, N25.81 - Secondary hyperparathyroidism of renal origin US renal BI 1 Month N18.31 - Chronic kidney disease, stage 3a Coding Level of Care Code New Pt Level 4 (20751) Diagnoses Essential (primary) hypertension I10 Vitamin D deficiency E55.9 CKD stage 3a, GFR 45-59 ml/min N18.31 Secondary hyperparathyroidism (of renal origin) N25.81
[2025-01-08 09:47] VITALS: BP 140/70; PULSE 71; O2SAT 98; BMI 28.0
== END 2025-01-08 10:30 | disposition home or self-care (01) ==
LOC: HO.HKA 09:33
PROVIDERS: PCP Internal Medicine; Referring Provider Physician Assistant Medical; Visit Provider Internal Medicine Nephrology
DX: I10 Essential (primary) hypertension (principal); E55.9 Vitamin D deficiency, unspecified; N18.31 Chronic kidney disease, stage 3a; N25.81 Secondary hyperparathyroidism of renal origin
CPT/HCPCS: 99204

== ENCOUNTER → 2025-01-08 09:32 | Outpatient (BNVA) | payer MEDICARE, SELFPAY | PROVIDERS: PCP Internal Medicine; Referring Provider Physician Assistant Medical; Visit Provider Internal Medicine Nephrology | DX: I12.9 Hypertensive chronic kidney disease with stage 1 through stage 4 chronic kidney disease, or unspecified chronic kidney disease (principal); I25.10 Atherosclerotic heart disease of native coronary artery without angina pectoris; E55.9 Vitamin D deficiency, unspecified; N18.31 Chronic kidney disease, stage 3a; N25.81 Secondary hyperparathyroidism of renal origin | CPT/HCPCS: 99202 ==

== ENCOUNTER 2025-01-31 08:14 | Outpatient (REF) | payer MEDICARE, SELFPAY ==
--- NOTE | ~2025-01-31 | US_ITS ---
EXAMINATION: US RETROPERITONEAL LIMITED (RENAL ONLY) CLINICAL INFORMATION: Chronic kidney disease, stage 3A. Rule out renal artery stenosis. COMPARISON: Abdomen US 12/03/2020. TECHNIQUE: Ultrasound along with color Doppler imaging and spectral analysis was performed of the kidneys. FINDINGS: RIGHT KIDNEY: 10.5 x 5.0 x 5.3 cm (SAG x AP x TRV). The kidney is normal in size, contour, and echogenicity. Renal cortical thickness is normal. No calculi or focal parenchymal lesions. No hydronephrosis. LEFT KIDNEY: 10.7 x 4.3 x 5.1 cm (SAG x AP x TRV). The kidney is normal in size, contour, and echogenicity. Renal cortical thickness is normal. No calculi or focal parenchymal lesions. No hydronephrosis. There is a simple mid pole cortical cyst measuring 1.3 cm. Spectral Doppler analysis: Right Kidney: -Peak systolic velocity in the proximal right renal artery = 102 cm/s. Normal waveforms. -Peak systolic velocity in the mid right renal artery = 73 cm/s. Normal waveforms. -Peak systolic velocity in the distal right renal artery = 62 cm/s. Normal waveforms. -Patent right renal vein. -Upper pole interlobar artery resistive index of 0.65. -Midpole interlobar artery resistive index of 0.68. -Lower pole interlobar artery resistive index of 1.69. RAR right = 1.7 Left Kidney: -Peak systolic velocity in the proximal left renal artery = 126 cm/s. Normal waveforms. -Peak systolic velocity in the mid left renal artery = 108 cm/s. Normal waveforms. -Peak systolic velocity in the distal left renal artery = 117 cm/s. Normal waveforms. -Patent left renal vein. -Upper pole interlobar artery resistive index of 0.71. -Mid pole interlobar artery resistive index of 0.81. (Borderline elevated) -lower pole interlobar artery resistive index of 0.80. (Borderline elevated) RAR left = 2.1 Aorta: -Peak systolic velocity = 60 cm/s. -Known distal abdominal aortic aneurysm measuring 4.2 x 4.4 cm axial diameter, with lumen measuring 2.3 x 2.1 cm axial diameter. Peak systolic velocity = 45 cm/s. There are to and fro waveforms within the aneurysm. US/US renal doppler IMPRESSION: 1. No evidence of renal artery stenosis or abnormal waveforms bilaterally on color/spectral Doppler examination (based on peak systolic velocities and resistive indices). Borderline elevated interlobar resistive indices of the left kidney mid and lower pole, at 0.81 and 0.80, however the waveforms have normal morphology, and this is likely not clinically significant interlobar artery stenosis. 2. Renal parenchyma is normal. There is a 1.3 cm left renal cortical cyst. 3. Known infrarenal abdominal aortic aneurysm measuring 4.2 x 4.4 cm in axial diameter. Electronically signed by: Angel Moore MD 01/31/2025 09:18 AM EDT
== END 2025-01-31 08:15 | disposition home or self-care (01) ==
LOC: HO.HMGCX 08:14
PROVIDERS: PCP Internal Medicine; Visit Provider Internal Medicine Nephrology
DX: I12.9 Hypertensive chronic kidney disease with stage 1 through stage 4 chronic kidney disease, or unspecified chronic kidney disease (principal); N18.31 Chronic kidney disease, stage 3a; N25.81 Secondary hyperparathyroidism of renal origin; E55.9 Vitamin D deficiency, unspecified
CPT/HCPCS: 76775; 93975

== ENCOUNTER → 2025-01-31 08:15 | Outpatient (BNV) | payer MEDICARE, SELFPAY | PROVIDERS: PCP Internal Medicine; Visit Provider Radiology Diagnostic Radiology | DX: I71.43 Infrarenal abdominal aortic aneurysm, without rupture (principal); N18.31 Chronic kidney disease, stage 3a | CPT/HCPCS: 76775; 93975 ==

== ENCOUNTER 2025-04-09 10:48 | Outpatient (AMB) | payer MEDICARE, SELFPAY ==
--- NOTE | 2025-04-09 11:23 | HO.NEPHOV_ITS ---
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 He has H/O CAD needing PCI as well as CABG. He also has H/O PAD as well as infra renal AAA. He is hypertensive and is on ACEI. He is on lipid lowering agent as well as plavix. He is not on any SGLT2 i. He denies being diabetic. He does not have any edema, hematuria or orthostatic symptoms. He does not have any new bone or back pain. He does not take excessive NSAID's. His recent serum creatinine has been 1.52 [facility] Medical History (Updated 04/09/25 @ 11:39 by Caleb Powell MD) Parkinsonian features Zinc deficiency Vitamin D deficiency High serum vitamin B12 Elevated parathyroid hormone Colonoscopy refused Follow-up exam, 3-6 months since previous exam CKD (chronic kidney disease) Infrarenal abdominal aortic aneurysm (AAA) without rupture Peripheral arterial occlusive disease Coronary artery disease Benign prostate hyperplasia Familial hypercholesterolemia Essential (primary) hypertension Surgical History History of tonsillectomy History of angioplasty History of cataract surgery S/P triple vessel bypass Family History Mother No problems noted. Father No problems noted. Other Mental health disorder Social History Housing: House Alcohol intake: current Alcohol intake frequency: does not drink Patient Tobacco Use Status: Former Tobacco user (12 years ago) Tobacco use type: Cigarette Years Smoked: 12 years e-Cigarette/Vaping Use: Never Used Second Hand Smoke Exposure: Yes service: Yes Current occupational status: retired Cognitive needs: No Hearing needs: No Vision needs: Yes (reading glasses) Review of Systems Const All systems reviewed & are unremarkable except as noted in HPI and below Physical Exam Vital Signs: Last Vital Signs Pulse 80 07/23/25 11:25 BP 136/90 H 04/09/25 11:25 Pulse Ox 100 04/09/25 11:25 Oxygen Delivery Method Room Air 04/09/25 11:25 BMI result Body Mass Index 27.5 Const General: comfortable and no acute distress Orientation/consciousness: patient oriented x3 HEENT Head: Yes normocephalic Mouth: Normal oral and palatal mucosa present Eyes EOM: EOMs intact bilaterally Neck Neck: Yes supple Resp Auscultation: clear to auscultation bilaterally Cardio Jugular venous distension: no JVD Rate: regular rate GI Palpation (GI): Soft to palpation Auscultation: normal bowel sounds General: Yes no CVA tenderness Back/Spine/Pelvis Back: no CVA tenderness Skin General skin exam: no rashes or lesions noted Neuro General: patient oriented x3 and moves all extremities Extrem General: Yes no pedal edema Results Reviewed Nephrology Results: Hgb, (14.0-18.0) 14.6 g/dl 12/06/24 WBC, (4.8-10.8) 10.1 X10*3/uL 12/06/24 Plt Count, (160-400) 167 X10*3/uL 12/06/24 Sodium, (135-145) 142 mmol/L 12/06/24 Potassium, (3.3-5.1) 4.8 mmol/L 12/06/24 Chloride, (96-108) 111 mmol/L H 12/06/24 Carbon Dioxide, (22-29) 25 mmol/L 12/06/24 BUN, (9-16) 27 mg/dL H 12/06/24 Creatinine, (0.5-1.4) 1.52 mg/dL H 12/06/24 Calcium, (8.4-10.2) 9.3 mg/dL 12/06/24 PTH Intact, (8.7-77.1) 185.7 pg/mL H 12/06/24 Urine Protein, (Neg-Trace) Negative mg/dL 06/06/24 Renal US 01/31/25 Assessment & Plan Assessment & Plan (1) Secondary hyperparathyroidism (of renal origin): Code(s): N25.81 - Secondary hyperparathyroidism of renal origin Category: Medical (2) Vitamin D deficiency: Code(s): E55.9 - Vitamin D deficiency, unspecified Category: Medical (3) CKD stage 3a, GFR 45-59 ml/min: Code(s): N18.31 - Chronic kidney disease, stage 3a Category: Medical (4) Essential (primary) hypertension: Code(s): I10 - Essential (primary) hypertension Category: Medical Plan Willy has CKD due to vascular disease. He has H/O CAD needing PCI, CABG, PAD as well as infra renal AAA. His renal functions are stable. His BP needs to be maintained at goal. He is on ACEI. His imaging studies were reviewed. He will be a candidate for SGLT2 i. He has secondary hyperparathyroidism and will need initiation of activated vitamin D with time. He should avoid NSAID's and maintain good hydration. All these have been explained in detail to him and his . Follow up given Orders: Orders Creatinine 4 Months E55.9 - Vitamin D deficiency, unspecified, I10 - Essential (primary) hypertension, N25.81 - Secondary hyperparathyroidism of renal origin Blood Urea Nitrogen 4 Months E55.9 - Vitamin D deficiency, unspecified, I10 - Essential (primary) hypertension, N25.81 - Secondary hyperparathyroidism of renal origin Electrolytes 4 Months E55.9 - Vitamin D deficiency, unspecified, I10 - Essential (primary) hypertension, N25.81 - Secondary hyperparathyroidism of renal origin Coding Level of Care Code Est Pt Level 4 (04511) Diagnoses Secondary hyperparathyroidism (of renal origin) N25.81 Vitamin D deficiency E55.9 CKD stage 3a, GFR 45-59 ml/min N18.31 Essential (primary) hypertension I10
[2025-04-09 11:25] VITALS: BP 136/90; PULSE 80; O2SAT 100; BMI 27.5
== END 2025-04-09 11:46 | disposition home or self-care (01) ==
LOC: HO.HKA 10:49
PROVIDERS: PCP Internal Medicine; Visit Provider Internal Medicine Nephrology
DX: N25.81 Secondary hyperparathyroidism of renal origin (principal); E55.9 Vitamin D deficiency, unspecified; N18.31 Chronic kidney disease, stage 3a; I10 Essential (primary) hypertension
CPT/HCPCS: 99214

== ENCOUNTER → 2025-04-09 10:48 | Outpatient (BNVA) | payer MEDICARE, SELFPAY | PROVIDERS: PCP Internal Medicine; Visit Provider Internal Medicine Nephrology | DX: N25.81 Secondary hyperparathyroidism of renal origin (principal); E55.9 Vitamin D deficiency, unspecified; I12.9 Hypertensive chronic kidney disease with stage 1 through stage 4 chronic kidney disease, or unspecified chronic kidney disease; N18.31 Chronic kidney disease, stage 3a | CPT/HCPCS: 99212 ==

== ENCOUNTER 2025-04-28 07:45 | Outpatient (AMB) | payer MEDICARE, SELFPAY ==
--- NOTE | 2025-04-28 07:51 | MHC.OFFVIS ---
Vital Signs 04/28/25 07:56 Height 6 ft 1 in Weight 208 lb 1.862 oz BMI 27.5 BP 128/68 Blood Pressure Location Rt brachial Position Sitting Pulse 70 Pulse Source Pulse Oximeter Pulse Oximetry (%) 96 Oxygen Delivery Method Room Air Intake Visit Reasons: CKD, Vitamin D deficiency Intake Note: Patient present today for CKD and Vitamin D Deficiency follow up. Manager Traffic Required: No Accompanied by: Spouse Allergies No Known Allergies (No Known Allergies*) Allergy (Verified 04/28/25 08:04) HPI Comments Details: . The patient is an 79-year-old male presenting for evaluation of vitamin D deficiency and elevated parathyroid hormone levels. Recent blood work identified vitamin D level at 19.7 and a PTH level of 185, indicating secondary hyperparathyroidism due to vitamin D deficiency. He has chronic kidney disease stage 3 with stable renal function since 2020 and no previous renal specialist evaluation. No family history of hypercalcemia or kidney stones. First noted to have elevated PTH and decreased kidney function Not Currently using Calcium supplement . Takes 2000 IU of Vitamin D daily stated few wks ago . Not Currently using HCTZ. Kidney stones: No Osteoporosis: No History of [place] use: No Biotin use: No Family history of high calcium or kidney stones: No Renal imaging: [] DXA: Labs: - Labs: Vitamin D level 19.7 ng/mL, PTH level 185 pg/mL - Past GFR levels indicate chronic kidney disease stage 3:2020 GFR 54, recent levels between 37-45 On 2000 IU of vitamin D3. The patient is an 79-year-old male presenting with elevated parathyroid hormone level and vitamin D deficiency. He had been taking 2000 international units of vitamin D3 for three months and subsequent correction of PTH occurred with resolution of secondary hyperparathyroidism - Vitamin D3: 2000 IU daily for vitamin D deficiency - Labs: Vitamin D level is now normal; parathyroid hormone level is normal. [facility] Medical History (Updated 04/09/25 @ 11:39 by Caleb Powell MD) Parkinsonian features Zinc deficiency Vitamin D deficiency High serum vitamin B12 Elevated parathyroid hormone Colonoscopy refused Follow-up exam, 3-6 months since previous exam CKD (chronic kidney disease) Infrarenal abdominal aortic aneurysm (AAA) without rupture Peripheral arterial occlusive disease Coronary artery disease Benign prostate hyperplasia Familial hypercholesterolemia Essential (primary) hypertension Surgical History History of tonsillectomy History of angioplasty History of cataract surgery S/P triple vessel bypass Family History Mother No problems noted. Father No problems noted. Other Mental health disorder Social History Housing: House Alcohol intake: current Alcohol intake frequency: does not drink Patient Tobacco Use Status: Former Tobacco user (12 years ago) Tobacco use type: Cigarette Years Smoked: 12 years e-Cigarette/Vaping Use: Never Used Second Hand Smoke Exposure: Yes service: Yes Current occupational status: retired Cognitive needs: No Hearing needs: No Vision needs: Yes (reading glasses) Physical Exam Vital Signs: Last Vital Signs Pulse 70 04/28/25 07:56 BP 128/68 04/28/25 07:56 Pulse Ox 96 04/28/25 07:56 Oxygen Delivery Method Room Air 04/28/25 07:56 BMI result Body Mass Index 27.5 Assessment & Plan Assessment & Plan (1) Elevated parathyroid hormone: Code(s): R79.89 - Other specified abnormal findings of blood chemistry Category: Medical Plan: This 79-year-old white male with a history of secondary hyperparathyroidism most likely related to CKD as well as vitamin-D deficiency. Patient is currently on 2000 IU of vitamin D3 1. Vitamin D Deficiency: Plan includes increasing vitamin D3 supplementation to 2000 IU daily to address deficiency and manage secondary hyperparathyroidism. Follow-up labsto reassess vitamin D level and PTH response will be done at [facility] ([facility]) to eliminate any lab data in terms of measurement of PTH. 2. Secondary Hyperparathyroidism: Monitoring after increasing vitamin D intake. Educated about continued use of dietary supplements to reduce hyperparathyroid activity due to CKD. Once [id number] is replete further assessment by Nephrology to determine whether additional steps suggest addition of activated vitamin-D is necessary to normalized PTH will take place 1. Vitamin D deficiency The patient was initially found to have low vitamin D levels, which can lead to bone pain and fatigue. He was prescribed 2000 IU of vitamin D3 daily. Recent lab results indicate that the vitamin D levels have normalized. The plan is to continue the current dosage of vitamin D3 to maintain adequate levels and prevent recurrence of deficiency symptoms. 2. Elevated parathyroid hormone level The elevated parathyroid hormone level was a concern due to its potential to cause osteoporosis by increasing calcium release from bones. The patient's parathyroid hormone levels have normalized with vitamin D supplementation. No further intervention is required at this time, and the patient is advised to continue monitoring. The patient had an opportunity to ask questions regarding treatment plan. The patient expressed understanding and agreement with the above treatment plan. Patient was informed and verbally consented to the use of an ambient scribe for clinic note documentation during this visit. Coding Level of Care Code Est Pt Level 3 (99382) Diagnoses Elevated parathyroid hormone R79.89
[2025-04-28 07:56] VITALS: BP 128/68; PULSE 70; O2SAT 96; BMI 27.5
== END 2025-04-28 08:37 | disposition home or self-care (01) ==
LOC: HO.ENCR 07:45
PROVIDERS: PCP Internal Medicine; Visit Provider Internal Medicine Endocrinology, Diabetes & Metabolism
DX: R79.89 Other specified abnormal findings of blood chemistry (principal)
CPT/HCPCS: 99213

== ENCOUNTER → 2025-04-28 07:45 | Outpatient (BNVA) | payer MEDICARE, SELFPAY | PROVIDERS: PCP Internal Medicine; Visit Provider Internal Medicine Endocrinology, Diabetes & Metabolism | DX: R79.89 Other specified abnormal findings of blood chemistry (principal) | CPT/HCPCS: 99212 ==

== ENCOUNTER 2025-06-12 08:32 | Outpatient (AMB) | payer MEDICARE, SELFPAY ==
--- NOTE | 2025-06-12 08:38 | MHC.PC.OV ---
Vital Signs 06/12/25 08:40 Height 6 ft 1 in Weight 203 lb 4 oz BMI 26.8 BP 142/68 H Blood Pressure Location Lt brachial Position Sitting Pulse 81 Pulse Source Pulse Oximeter Temp 97.1 F Temp Source Temporal Artery Scan Pulse Oximetry (%) 96 Oxygen Delivery Method Room Air Intake Visit Reasons: 6 mon f/u Intake Note: Patient is here to follow up on CKD, BPH, Hypercholesterolemia, HTN. Spinning Doffer Required: No Licensed Marriage And Family Therapist: Present Accompanied by: Spouse Allergies No Known Allergies (No Known Allergies*) Allergy (Verified 06/12/25 09:03) Tobacco use date assessed: 06/12/25 Fall risk assessment: No Falls in past year Last assessed Fall Risk: 06/12/25 Dental Screening Dental Screen Date: 12/05/24 [facility] Medical History (Updated 04/09/25 @ 11:39 by Caleb Powell MD) Parkinsonian features Zinc deficiency Vitamin D deficiency High serum vitamin B12 Elevated parathyroid hormone Colonoscopy refused Follow-up exam, 3-6 months since previous exam CKD (chronic kidney disease) Infrarenal abdominal aortic aneurysm (AAA) without rupture Peripheral arterial occlusive disease Coronary artery disease Benign prostate hyperplasia Familial hypercholesterolemia Essential (primary) hypertension Surgical History History of tonsillectomy History of angioplasty History of cataract surgery S/P triple vessel bypass Family History Mother No problems noted. Father No problems noted. Other Mental health disorder Social History Housing: House Alcohol intake: current Alcohol intake frequency: does not drink Patient Tobacco Use Status: Former Tobacco user (12 years ago) Tobacco use type: Cigarette Years Smoked: 12 years e-Cigarette/Vaping Use: Never Used Second Hand Smoke Exposure: Yes service: Yes Current occupational status: retired Cognitive needs: No Hearing needs: No Vision needs: Yes (reading glasses) Questionnaire PHQ-9 Over the last 2 weeks, how often have you been bothered by any of the following problems? 1. Little interest or pleasure in doing things: not at all 2. Feeling down, depressed, or hopeless: not at all 3. Trouble falling or staying asleep, or sleeping too much: not at all 4. Feeling tired or having little energy: more than half the days 5. Poor appetite or overeating: not at all 6. Feeling bad about yourself - or that you are a failure or have let yourself or your family down: not at all 7. Trouble concentrating on things, such as reading the newspaper or watching television: not at all 8. Moving or speaking so slowly that other people could have noticed. Or the opposite - being so fidgety or restless that you have been moving around a lot more than usual: not at all 9. Thoughts that you would be better off or of hurting yourself in some way: not at all Total score: 2 Depression Screening Interpretation: Positive Depression Screening Done: Yes Source: Developed by Drs. Heriberto Odom, Sobeida Abbott, Chris López and colleagues, with an educational tana from [employer]. Thrive Questionnaire Date Thrive assessed: 12/05/24 I am a: Patient What is your living situation today?: I have a steady place to live Within the past 12 months, did the food you bought not last and you didn't have the money to get more?: Never true Within the past 12 months, did you worry whether your food would run out before you got money to buy more?: Never true Do you have trouble paying for medicines?: No Do you have trouble getting transportation to medical appointments?: No Do you have trouble paying your heating and electricity bill?: No Do you have trouble taking care of your child, family member or friend?: No Do you have trouble with day-to-day activities such as bathing, preparing meals, shopping, managing finances, etc.?: No Are you currently unemployed and looking for a job?: No Are you interested in more education?: No Please select the resources that you would like help with: None Currently or been in a relationship where the following occur: No concerns reported THRIVE Score: 0 AUDIT C Alcohol Use Questionnaire (AUDIT-C) 1. How often do you have a drink containing alcohol?: Never Total Score: 0 ALIX-7 AMB Questionnaire ALIX-7 Date ALIX - 7 assessed: 12/05/24 Feeling nervous, anxious, or on edge: 0 = Not at all Not being able to stop or control worryin = Not at all Worrying too much about different things: 0 = Not at all Trouble relaxin = Not at all Being so restless that it is hard to sit still: 0 = Not at all Becoming easily annoyed or irritable: 0 = Not at all Feeling afraid as if something awful might happen: 0 = Not at all Total ALIX-7 score (0-4 normal; 5-9 mild; 10-14 moderate; 15-21 severe): 0 Source: Developed by Drs. Heriberto Odom, Sobeida Abbott, Chris López and colleagues, with an educational tana from [employer]. Physical exam (Primary Care) Vital Signs: Last Vital Signs Temp 97.1 F 06/12/25 08:40 Pulse 81 06/12/25 08:40 BP 142/68 H 06/12/25 08:40 Pulse Ox 96 06/12/25 08:40 Oxygen Delivery Method Room Air 06/12/25 08:40 BMI result Body Mass Index 26.8 Tobacco/Smoking Status: Tobacco use Status Tobacco use date assessed 06/12/25 06/12/25 08:48 Patient Tobacco Use Status Former Tobacco user (12 06/12/25 08:48 years ago) Tobacco use type Cigarette 06/12/25 08:48 e-Cigarette/Vaping Use Never Used 06/12/25 08:48 PHQ-9: PHQ-9 Score PHQ-9: Total score 2 06/12/25 08:48 Depression Screening Interpretation: Positive Thrive Assessment: Date of Thrive Assessment Date Thrive assessed 12/05/24 06/12/25 08:48 Currently or been in a relationship where the following occur: No concerns reported Const General: cooperative and healthy appearing Nutritional Appearance: well nourished Orientation/consciousness: patient oriented x3 Limitations: no limitations HENMT Head: Yes normal to inspection Eyes General: appearance normal, both eyes and all related structures Neck Neck: Yes normal visual inspection Chest Chest palpation & inspection: normal palpation of entire chest wall Resp Effort & Inspection: normal respiratory effort Neuro General: patient oriented x3 Coding Level of Care Code Est Pt Level 4 (67914) Complex EM visit Add On G2211 Diagnoses Essential (primary) hypertension I10 Coronary artery disease I25.10 Peripheral arterial occlusive disease I77.9 Movement disorder G25.9 Assessment & Plan Assessment & Plan (1) Essential (primary) hypertension: Code(s): I10 - Essential (primary) hypertension Category: Medical Plan: Blood pressure is in range. Patient was advised to monitor blood pressures at home. (2) Coronary artery disease: Code(s): I25.10 - Atherosclerotic heart disease of [place] coronary artery without angina pectoris Category: Medical Plan: Condition is stable. Patient has a workup with a automatic pad making machine operator elsewhere. (3) Peripheral arterial occlusive disease: Code(s): I77.9 - Disorder of arteries and arterioles, unspecified Category: Medical Plan: Patient has had a stent in his right lower extremity. He follows with vascular surgeon. (4) Movement disorder: Code(s): G25.9 - Extrapyramidal and movement disorder, unspecified Plan: On physical exam, tremors noted and patient has a shuffling gait. A neurology appointment has been requested. Plan History of Present Illness - The patient is an 79-year-old male presenting with management of vitamin D deficiency, suspected Parkinson's disease, and follow-up on peripheral vascular disease and coronary artery disease. - Vitamin D deficiency: Currently managed with 50 mcg of vitamin D3 daily, with no further follow-up required. - Suspected Parkinson's disease: Reports tremors in the right hand and a shuffling gait. Referred to a neurologist with an appointment on June 25. - Peripheral vascular disease: Experiences calf tightness after walking 50 yards, resolving with rest. Regular ultrasounds show no changes, and a stent is placed in one leg. - Coronary artery disease: History of triple bypass surgery, with calf tightness on exertion. Scheduled for carotid artery ultrasound for monitoring. Social History - The patient is and has been with his spouse for 51 years. - The patient does not drive, and his spouse assists with transportation. Review of Systems - Neurological: Reports tremors in the right hand and a shuffling gait. - Musculoskeletal: Reports calf tightness after walking 50 yards, resolving with rest. - Cardiovascular: Denies leg pain but reports calf tightness with exertion. - General: Reports increased fatigue but denies daytime napping. Physical Exam General: Cooperative and healthy appearing Nutritional Appearance: Well nourished Orientation/consciousness: Patient oriented x3 Limitations: No limitations Head: Normal to inspection General: Appearance normal, both eyes and all related structures Neck: Normal visual inspection Chest: Normal palpation of entire chest wall Respiratory: N ormal respiratory effort Neurology: Patient oriented x3, reports right hand tremor and shuffling gait, possible Parkinson's disease. Results - Imaging: Kidney ultrasound showed no concerning findings as per Dr. Flores. - Imaging: Regular ultrasounds of the legs show no changes, and a stent is placed in one leg. Plan - Continue vitamin D3 supplementation at 50 mcg daily. - Attend neurology appointment for suspected Parkinson's disease on June 25. - Maintain regular ultrasounds for peripheral vascular disease monitoring. - Complete carotid artery ultrasound as advised. Discussion Notes During the visit, we discussed the management of vitamin D deficiency with continued supplementation. The patient was informed about the neurology appointment for suspected Parkinson's disease and the importance of attending it. We also reviewed the need for regular ultrasounds for peripheral vascular disease and the upcoming carotid artery ultrasound. The patient was advised to continue current management and follow up as scheduled. Patient Instructions - Continue taking vitamin D3 at 50 mcg daily. - Attend the neurology appointment on June 25 for further evaluation of suspected Parkinson's disease. - Follow up with regular ultrasounds for peripheral vascular disease monitoring. - Complete the carotid artery ultrasound as scheduled. Orders: Orders Hemoglobin A1c Today I10 - Essential (primary) hypertension, I25.10 - Atherosclerotic heart disease of [place] coronary artery without angina pectoris, I77.9 - Disorder of arteries and arterioles, unspecified Basic Metabolic Panel Today I10 - Essential (primary) hypertension, I25.10 - Atherosclerotic heart disease of [place] coronary artery without angina pectoris, I77.9 - Disorder of arteries and arterioles, unspecified Liver Panel Today I10 - Essential (primary) hypertension, I25.10 - Atherosclerotic heart disease of [place] coronary artery without angina pectoris, I77.9 - Disorder of arteries and arterioles, unspecified Lipid Panel Today I10 - Essential (primary) hypertension, I25.10 - Atherosclerotic heart disease of [place] coronary artery without angina pectoris, I77.9 - Disorder of arteries and arterioles, unspecified Complete Blood Count no Diff Today I10 - Essential (primary) hypertension, I25.10 - Atherosclerotic heart disease of [place] coronary artery without angina pectoris, I77.9 - Disorder of arteries and arterioles, unspecified Thyroid Stimulating Hormone Today I10 - Essential (primary) hypertension, I25.10 - Atherosclerotic heart disease of [place] coronary artery without angina pectoris, I77.9 - Disorder of arteries and arterioles, unspecified UA and rflx microscopic Today I10 - Essential (primary) hypertension, I25.10 - Atherosclerotic heart disease of [place] coronary artery without angina pectoris, I77.9 - Disorder of arteries and arterioles, unspecified
[2025-06-12 08:40] VITALS: BP 142/68; PULSE 81; TEMP 36.2; O2SAT 96; BMI 26.8
== END 2025-06-12 09:25 | disposition home or self-care (01) ==
LOC: HO.HMCH 08:33
PROVIDERS: PCP Internal Medicine; Visit Provider Internal Medicine
DX: I10 Essential (primary) hypertension (principal); I25.10 Atherosclerotic heart disease of native coronary artery without angina pectoris; I77.9 Disorder of arteries and arterioles, unspecified; G25.9 Extrapyramidal and movement disorder, unspecified

== ENCOUNTER 2025-06-12 08:32 | Outpatient (REF) | payer MEDICARE, SELFPAY ==
[2025-06-12 10:41] LABS: Hematocrit 43.7 % (42.0-52.0); Hemoglobin 14.1 g/dl (14.0-18.0); Mean Corpuscular HGB Conc 32.3 g/dl (31.0-36.0); Mean Corpuscular Hemoglobin 29.1 pg (27.0-33.0); Mean Corpuscular Volume 90.1 fL (80.0-98.0); NRBC Abs Auto 0.000 X10*3/uL (0.0-0.012); NRBC Pct Auto 0.0 /100WBC (0.0-0.2); Platelet Count 182 X10*3/uL (160-400); Red Blood Count 4.85 X10*6/uL (4.60-5.80); White Blood Count 8.7 X10*3/uL (4.8-10.8)
[2025-06-12 10:44] LABS: Appearance Urine Clear; Glucose Urine UA Negative (Negative); PH 6.0 (5.0-9.0); Specific Gravity - Urine 1.015 (1.005-1.025); UMIC TRIGGER UA YES
[2025-06-12 11:29] LABS: Alanine Aminotransferase 12 U/L (0-40); Albumin Level 4.3 g/dL (3.5-5.0); Alkaline Phosphatase 154 U/L (39-117); Anion Gap 11 (12-20); Aspartate Amino Transferase 22 U/L (5-37); Blood Urea Nitrogen 26 mg/dL (9-16); Calcium 9.5 mg/dL (8.4-10.2); Carbon Dioxide 28 mmol/L (22-29); Chloride 109 mmol/L (96-108); Cholesterol 104 mg/dL (<200); Estimated Glomerular Filt Rate 43; HDL Cholesterol 30 mg/dL (>40); Potassium 4.9 mmol/L (3.3-5.1); Sodium 143 mmol/L (135-145); Total Protein 7.1 g/dL (6.5-8.0); Triglycerides 93 mg/dL (<150)
[2025-06-12 11:31] LABS: Thyroid Stimulating Hormone 2.30 uIU/mL (0.32-4.0)
== END 2025-06-12 08:33 | disposition home or self-care (01) ==
LOC: HO.LAB 08:32
PROVIDERS: PCP Internal Medicine; Visit Provider Internal Medicine
DX: I25.10 Atherosclerotic heart disease of native coronary artery without angina pectoris (principal); I10 Essential (primary) hypertension; I77.9 Disorder of arteries and arterioles, unspecified; G25.9 Extrapyramidal and movement disorder, unspecified
CPT/HCPCS: 36415; 80048; 80061; 80076; 81001; 83036; 84443; 85027; 99212

== ENCOUNTER 2025-06-16 08:26 | Outpatient (AMB) | payer MEDICARE, SELFPAY ==
[2025-06-16 08:37] VITALS: BP 114/62; PULSE 62; TEMP 36.4; O2SAT 96; BMI 27.2
--- NOTE | 2025-06-16 08:37 | AM.OFFWIN_ITS ---
Intake Vital Signs 06/16/25 08:37 Height 6 ft 1 in Weight 206 lb BMI 27.2 BP 114/62 Blood Pressure Location Rt brachial Position Sitting Pulse 62 Pulse Source Pulse Oximeter Temp 97.5 F Temp Source Oral Pulse Oximetry (%) 96 Oxygen Delivery Method Room Air Intake Visit Reasons: EP Wax build up in lt ear Intake Note: pt presents with left ear blockage without pain Patient Tobacco Use Status: Former Tobacco user (12 years ago) Allergies No Known Allergies (No Known Allergies*) Allergy (Verified 06/16/25 08:38) Do you need a note to return to daycare/school/sports/work: No HPI HPI Comments History of Present Illness Details History - The patient is an 79-year-old male pre senting with cerumen impaction in the left ear. - The patient noticed the issue approxim ately two days ago. - There is no associated pain or signifi cant hearing loss reported. - No dizziness, cough, or cold symptoms are present. - Has not tried anything OTC for the wax . Physical Exam General: Cooperative, healthy appearing, comfortable, no acute distress and well developed Head: Normal to inspection Ears: External ears normal bilaterally. No tragus or mastoid tenderness noted. Cerumen noted in the left canal. TM's not visualized. Face and sinus: Normal facial exam. No TTP of the sinuses. Neck: Normal visual inspection. Full ROM. No lymphadenopathy noted. Respiratory: Normal respiratory effort and able to speak in complete sentences. Clear to auscultation bilaterally. No w/r/r noted. Cardiac: RRR, no m/r/g noted. Normal S1 and S2 noted. Skin: No rashes or lesions noted Neuro: Patient oriented x3 Patient was informed and verbally consented to the use of an ambient scribe for clinic note documentation during this visit. [facility] Medical History (Updated 04/09/25 @ 11:39 by Caleb Powell MD) Parkinsonian features Zinc deficiency Vitamin D deficiency High serum vitamin B12 Elevated parathyroid hormone Colonoscopy refused Follow-up exam, 3-6 months since previous exam CKD (chronic kidney disease) Infrarenal abdominal aortic aneurysm (AAA) without rupture Peripheral arterial occlusive disease Coronary artery disease Benign prostate hyperplasia Familial hypercholesterolemia Essential (primary) hypertension Surgical History History of tonsillectomy History of angioplasty History of cataract surgery S/P triple vessel bypass Family History Mother No problems noted. Father No problems noted. Other Mental health disorder Social History Housing: House Alcohol intake: current Alcohol intake frequency: does not drink Patient Tobacco Use Status: Former Tobacco user (12 years ago) Tobacco use type: Cigarette Years Smoked: 12 years e-Cigarette/Vaping Use: Never Used Second Hand Smoke Exposure: Yes service: Yes Current occupational status: retired Cognitive needs: No Hearing needs: No Vision needs: Yes (reading glasses) Review of Systems Const All systems reviewed & are unremarkable except as noted in HPI and below Physical Exam Vital Signs: Last Vital Signs Temp 97.5 F 06/16/25 08:37 Pulse 62 06/16/25 08:37 BP 114/62 06/16/25 08:37 Pulse Ox 96 06/16/25 08:37 Oxygen Delivery Method Room Air 06/16/25 08:37 BMI result Body Mass Index 27.2 Office Procedures Cerumen Removal From which ear canal was the cerumen removed: bilateral Removal: irrigation Notes: patient tolerated procedure well, no complications and ear canal clear [id number] Irrigation/Lavage Assessment & Plan Assessment & Plan (1) Cerumen impaction: Code(s): H61.20 - Impacted cerumen, unspecified ear Qualifiers: Laterality: bilateral Qualified Code(s): H61.23 - Impacted cerumen, bilateral Plan Most likely cerumen impaction Plan - The plan is to perform ear irrigation to remove the cerumen impaction in the left ear. - Follow-up examination will be conducted post-irrigation to ensure the ear canal is clear. - can use over the counter Debrox drops - avoid q-tips in the ears - follow up with PCP Orders: Orders AMB Cerumen Removal Today H61.23 - Impacted cerumen, bilateral Coding Level of Care Code Est Pt Level 3 (85430) Diagnoses Bilateral impacted cerumen H61.23 Laterality: bilateral CPT Codes Office Procedure - CPT: 71899-Tly Irrigation/Lavage ([id number])
== END 2025-06-16 09:51 | disposition home or self-care (01) ==
PROVIDERS: PCP Internal Medicine; Visit Provider Physician Assistant Medical
DX: H61.23 Impacted cerumen, bilateral (principal)

== ENCOUNTER → 2025-06-16 08:26 | Outpatient (BNVA) | payer MEDICARE, SELFPAY | PROVIDERS: PCP Internal Medicine; Visit Provider Physician Assistant Medical | DX: H61.23 Impacted cerumen, bilateral (principal) | CPT/HCPCS: 69209; 99212 ==

== ENCOUNTER 2025-06-25 08:08 | Outpatient (AMB) | payer MEDICARE, SELFPAY ==
--- NOTE | 2025-06-25 08:17 | MHC.OFFVIS ---
Vital Signs 06/25/25 08:18 Height 6 ft 1 in Weight 206 lb 2 oz BMI 27.2 BP 124/78 Blood Pressure Location Rt brachial Position Sitting Pulse 76 Pulse Source Palpation Intake Visit Reasons: INP - Parkinson's Assess Intake Note: Suspected Parkinson's disease Accounts Receivable Accountant Required: No Accompanied by: Spouse Allergies No Known Allergies (No Known Allergies*) Allergy (Verified 06/25/25 08:18) Medication List - Last Reconciled 06/25/25 by Malia Villaseñor MD aspirin (Adult Low Dose Aspirin) 81 mg PO DAILY atorvastatin 40 mg PO DAILY cholecalciferol (vitamin D3) 50 mcg PO DAILY clopidogrel 75 mg PO DAILY lisinopril 10 mg PO DAILY metoprolol tartrate 25 mg PO BID tamsulosin 0.4 mg PO BEDTIME 90 days vitamin B complex (B Complex-Vitamin B12 tablet) 1 tab PO QWEEK HPI Comments Details: 79y/o Right Handed male comes for evaluation of possible Parkinsons disease. He reports right hand tremors for 8-9 mths and fox snot bothe rhim . His tremors are intremittent and at rets . 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 Cognition- normal Mood- normal Sleep- on occasion he talks Speech- softer when he is tired Drooling- nighttime drooling Handwriting- smaller and illegible Utensils- normal- he was always slow Personal hygiene and showers- slower. He has some difficulty changing positions in bed Gait-peripheral artery disease - claudication affects his walking Balance-off balance slower, shuffles No falls He has trouble getting up from the chair No hallucinations Bowel movements - normal Bladder- normal No double vision , may feel dizzy if he looks up.No head injury . No fh/o parkinsons [facility] Medical History (Updated 06/25/25 @ 08:52 by Malia Villaseñor MD) Coarse tremors Parkinson's disease without dyskinesia or fluctuating manifestations Parkinsonian features Zinc deficiency Vitamin D deficiency High serum vitamin B12 Elevated parathyroid hormone Colonoscopy refused Follow-up exam, 3-6 months since previous exam CKD (chronic kidney disease) Infrarenal abdominal aortic aneurysm (AAA) without rupture Peripheral arterial occlusive disease Coronary artery disease Benign prostate hyperplasia Familial hypercholesterolemia Essential (primary) hypertension Surgical History History of tonsillectomy History of angioplasty History of cataract surgery S/P triple vessel bypass Family History Mother No problems noted. Father No problems noted. Other Mental health disorder Social History Housing: House Alcohol intake: current Alcohol intake frequency: does not drink Patient Tobacco Use Status: Former Tobacco user (12 years ago) Tobacco use type: Cigarette Years Smoked: 12 years e-Cigarette/Vaping Use: Never Used Second Hand Smoke Exposure: Yes service: Yes Current occupational status: retired Cognitive needs: No Hearing needs: No Vision needs: Yes (reading glasses) Physical Exam Vital Signs: Last Vital Signs Pulse 76 06/25/25 08:18 BP 124/78 06/25/25 08:18 BMI result Body Mass Index 27.2 Const General: cooperative, healthy appearing, comfortable and no acute distress Nutritional Appearance: average body habitus Orientation/consciousness: patient oriented x3 Eyes Pupils: Equal, round and reactive pupils present Neuro Other: Mild decrease dfacial expression blink mild asymmetry left palpebral fissure wider speech - softer Right UE rest tremors- mild Cog wheel rigidity 1 + right UE FFM decreased R.L Foot taps decreased R>L Gait- mild stoop , slowness. decreased arm swing R>L smaller stride General: patient oriented x3, moves all extremities and no focal motor deficits Cranial nerves: Yes Facial sensation intact/muscles of mastication intact, Yes Equal, round and reactive pupils present, Yes Bilaterally intact EOM present, Yes Nystagmus not present, Yes Normal facial strength present, Yes Midline tongue present and Yes Ability to bilaterally elevate shoulders present Cognition (Neuro): normal cognition Motor exam (neuro): 5/5 motor strength present throughout and Normal motor muscle tone present throughout Deep tendon reflexes (DTR's): Right triceps reflex intensity grade: 2+, Left triceps reflex intensity grade: 2+, Rt Biceps (C5, C6): 2+, Left biceps reflex intensity grade: 2+, Right brachioradialis reflex intensity grade: 2+, Left brachioradialis reflex intensity grade: 2+, Right patellar reflex intensity grade: 2+ and Left patellar reflex intensity grade: 2+ Coordination: [id number] test normal Assessment & Plan Assessment & Plan (1) Parkinson's disease without dyskinesia or fluctuating manifestations: Code(s): G20.A1 - Parkinson's disease without dyskinesia, without mention of fluctuations Category: Medical Plan Very mild symptoms- does not affect his ADLs He does not want MRI - due to possibility of metal fragments in his eyes I will do CT brain refer to [facility] program at [facility] [place], [place] No need medications now Discussed the diagnosis and prognosis. Suggetsed to increase fluid intake. Orders: Orders PWR Program Eval and Treat Today G20.A1 - Parkinson's disease without dyskinesia, without mention of fluctuations CT head/brain wo IV con Today G25.2 - Other specified forms of tremor Coding Level of Care Code New Pt Level 4 (40678) Complex EM visit Add On G2211 Diagnoses Parkinson's disease without dyskinesia or fluctuating manifestations G20.A1
[2025-06-25 08:18] VITALS: BP 124/78; PULSE 76; BMI 27.2
== END 2025-06-25 08:58 | disposition home or self-care (01) ==
LOC: HO.HSMS 08:09
PROVIDERS: PCP Internal Medicine; Visit Provider Psychiatry & Neurology Neurology
DX: G20.A1 Parkinson's disease without dyskinesia, without mention of fluctuations (principal)
CPT/HCPCS: 99204; G2211

== ENCOUNTER → 2025-06-25 08:08 | Outpatient (BNVA) | payer MEDICARE, SELFPAY | PROVIDERS: PCP Internal Medicine; Visit Provider Psychiatry & Neurology Neurology | DX: G20.A1 Parkinson's disease without dyskinesia, without mention of fluctuations (principal) | CPT/HCPCS: 99202 ==

== ENCOUNTER 2025-08-12 08:05 | Outpatient (REF) | payer MEDICARE, SELFPAY ==
[2025-08-12 09:20] LABS: Anion Gap 10 (12-20); Blood Urea Nitrogen 26 mg/dL (9-16); Carbon Dioxide 28 mmol/L (22-29); Chloride 108 mmol/L (96-108); Estimated Glomerular Filt Rate 43; Potassium 4.4 mmol/L (3.3-5.1); Sodium 142 mmol/L (135-145)
== END 2025-08-12 08:06 | disposition home or self-care (01) ==
LOC: HO.LAB 08:05
PROVIDERS: PCP Internal Medicine; Visit Provider Internal Medicine Nephrology
DX: I12.9 Hypertensive chronic kidney disease with stage 1 through stage 4 chronic kidney disease, or unspecified chronic kidney disease (principal); E55.9 Vitamin D deficiency, unspecified; N25.81 Secondary hyperparathyroidism of renal origin; N18.31 Chronic kidney disease, stage 3a
CPT/HCPCS: 36415; 80051; 82565; 84520

== ENCOUNTER 2025-08-22 09:47 | Outpatient (AMB) | payer MEDICARE, SELFPAY ==
--- NOTE | 2025-08-22 10:04 | HO.NEPHOV_ITS ---
Vital Signs 08/22/25 10:05 Height 6 ft 1 in Weight 206 lb 8 oz BMI 27.2 BP 110/62 Blood Pressure Location Rt brachial Position Sitting Pulse 81 Pulse Source Pulse Oximeter Pulse Oximetry (%) 96 Oxygen Delivery Method Room Air Intake Visit Reasons: 4mon f/u w/labs-Conf Shipping And Receiving Required: No Accompanied by: Daughter Allergies No Known Allergies (No Known Allergies*) Allergy (Verified 08/22/25 10:05) HPI Comments Details: I had the pleasure of seeing Willy in follow up for CKD. He has H/O CAD needing PCI as well as CABG. He also has H/O PAD as well as infra renal AAA. He is hypertensive and is on ACEI. He is on lipid lowering agent as well as plavix. He is not on any SGLT2 i. He denies being diabetic. He does not have any edema, hematuria or orthostatic symptoms. He does not have any new bone or back pain. He does not take excessive NSAID's. His recent serum creatinine has been stable [facility] Medical History (Updated 06/25/25 @ 08:52 by Malia Villaseñor MD) Coarse tremors Parkinson's disease without dyskinesia or fluctuating manifestations Parkinsonian features Zinc deficiency Vitamin D deficiency High serum vitamin B12 Elevated parathyroid hormone Colonoscopy refused Follow-up exam, 3-6 months since previous exam CKD (chronic kidney disease) Infrarenal abdominal aortic aneurysm (AAA) without rupture Peripheral arterial occlusive disease Coronary artery disease Benign prostate hyperplasia Familial hypercholesterolemia Essential (primary) hypertension Surgical History History of tonsillectomy History of angioplasty History of cataract surgery S/P triple vessel bypass Family History Mother No problems noted. Father No problems noted. Other Mental health disorder Social History Housing: House Alcohol intake: current Alcohol intake frequency: does not drink Patient Tobacco Use Status: Former Tobacco user (12 years ago) Tobacco use type: Cigarette Years Smoked: 12 years e-Cigarette/Vaping Use: Never Used Second Hand Smoke Exposure: Yes service: Yes Current occupational status: retired Cognitive needs: No Hearing needs: No Vision needs: Yes (reading glasses) Review of Systems Const All systems reviewed & are unremarkable except as noted in HPI and below Physical Exam Vital Signs: Last Vital Signs Pulse 81 08/22/25 10:05 BP 110/62 08/22/25 10:05 Pulse Ox 96 08/22/25 10:05 Oxygen Delivery Method Room Air 08/22/25 10:05 BMI result Body Mass Index 27.2 Const General: comfortable and no acute distress Orientation/consciousness: patient oriented x3 HEENT Head: Yes normocephalic Mouth: Normal oral and palatal mucosa present Eyes EOM: EOMs intact bilaterally Neck Neck: Yes supple Resp Auscultation: clear to auscultation bilaterally Cardio Jugular venous distension: no JVD Rate: regular rate GI Palpation (GI): Soft to palpation Auscultation: normal bowel sounds General: Yes no CVA tenderness Back/Spine/Pelvis Back: no CVA tenderness Skin General skin exam: no rashes or lesions noted Neuro General: patient oriented x3 and moves all extremities Extrem General: Yes no pedal edema Results Reviewed Nephrology Results: Hgb, (14.0-18.0) 14.1 g/dl 06/12/25 WBC, (4.8-10.8) 8.7 X10*3/uL 06/12/25 Plt Count, (160-400) 182 X10*3/uL 06/12/25 Sodium, (135-145) 142 mmol/L 08/12/25 Potassium, (3.3-5.1) 4.4 mmol/L 08/12/25 Chloride, (96-108) 108 mmol/L 08/12/25 Carbon Dioxide, (22-29) 28 mmol/L 08/12/25 BUN, (9-16) 26 mg/dL H 08/12/25 Creatinine, (0.5-1.4) 1.55 mg/dL H 08/12/25 Calcium, (8.4-10.2) 9.5 mg/dL 06/12/25 Urine Protein, (Neg-Trace) Negative mg/dL 06/12/25 Renal US 01/31/25 Assessment & Plan Assessment & Plan (1) Essential (primary) hypertension: Code(s): I10 - Essential (primary) hypertension Category: Medical (2) Secondary hyperparathyroidism (of renal origin): Code(s): N25.81 - Secondary hyperparathyroidism of renal origin Category: Medical (3) Vitamin D deficiency: Code(s): E55.9 - Vitamin D deficiency, unspecified Category: Medical (4) CKD stage 3a, GFR 45-59 ml/min: Code(s): N18.31 - Chronic kidney disease, stage 3a Category: Medical Plan Willy has CKD due to vascular disease. He has H/O CAD needing PCI, CABG, PAD as well as infra renal AAA. His renal functions are stable. His BP needs to be maintained at goal. He is on ACEI. His imaging studies were reviewed. He will be a candidate for SGLT2 i. He has secondary hyperparathyroidism and will need initiation of activated vitamin D with time. He should avoid NSAID's and mainta in good hydration. Follow up given Orders: Orders Protein Creatinine Ratio, Ur 4 Months E55.9 - Vitamin D deficiency, unspecified, I10 - Essential (primary) hypertension, N18.31 - Chronic kidney disease, stage 3a, N25.81 - Secondary hyperparathyroidism of renal origin Creatinine 4 Months E55.9 - Vitamin D deficiency, unspecified, I10 - Essential (primary) hypertension, N18.31 - Chronic kidney disease, stage 3a, N25.81 - Secondary hyperparathyroidism of renal origin Electrolytes 4 Months E55.9 - Vitamin D deficiency, unspecified, I10 - Essential (primary) hypertension, N18.31 - Chronic kidney disease, stage 3a, N25.81 - Secondary hyperparathyroidism of renal origin Blood Urea Nitrogen 4 Months E55.9 - Vitamin D deficiency, unspecified, I10 - Essential (primary) hypertension, N18.31 - Chronic kidney disease, stage 3a, N25.81 - Secondary hyperparathyroidism of renal origin Calcium 4 Months E55.9 - Vitamin D deficiency, unspecified, I10 - Essential (primary) hypertension, N18.31 - Chronic kidney disease, stage 3a, N25.81 - Secondary hyperparathyroidism of renal origin Coding Level of Care Code Est Pt Level 4 (57916) Diagnoses Essential (primary) hypertension I10 Secondary hyperparathyroidism (of renal origin) N25.81 Vitamin D deficiency E55.9 CKD stage 3a, GFR 45-59 ml/min N18.31
[2025-08-22 10:05] VITALS: BP 110/62; PULSE 81; O2SAT 96; BMI 27.2
== END 2025-08-22 10:29 | disposition home or self-care (01) ==
LOC: HO.HKA 09:48
PROVIDERS: PCP Internal Medicine; Visit Provider Internal Medicine Nephrology
DX: I10 Essential (primary) hypertension (principal); N25.81 Secondary hyperparathyroidism of renal origin; E55.9 Vitamin D deficiency, unspecified; N18.31 Chronic kidney disease, stage 3a
CPT/HCPCS: 99214

== ENCOUNTER → 2025-08-22 09:47 | Outpatient (BNVA) | payer MEDICARE, SELFPAY | PROVIDERS: PCP Internal Medicine; Visit Provider Internal Medicine Nephrology | DX: I10 Essential (primary) hypertension (principal); N25.81 Secondary hyperparathyroidism of renal origin; E55.9 Vitamin D deficiency, unspecified; N18.31 Chronic kidney disease, stage 3a | CPT/HCPCS: 99212 ==

== ENCOUNTER 2025-09-04 07:20 | Outpatient (REF) | payer MEDICARE, SELFPAY ==
--- NOTE | ~2025-09-04 | CT_ITS ---
EXAMINATION: CT HEAD WITHOUT IV CONTRAST HISTORY: G25.2 - Other specified forms of tremor. TECHNIQUE: Unenhanced helical CT of the head was performed per standard departmental protocol. Coronal and sagittal reformats of the head were also evaluated. One or more of the following techniques was used for dose reduction: Automated exposure control, adjustment of the mA and/or kV according to patient size, use of iterative reconstruction technique. DLP: 782 mGy-cm COMPARISON: There are no prior studies available for comparison. FINDINGS: BRAIN: There is mild prominence of the ventricular system and cortical sulci, consistent with atrophy. Scattered periventricular and subcortical white matter hypodensities are noted which are nonspecific, but often seen in the setting of small vessel ischemic disease. There is no mass effect or midline shift. No intra- or extra-axial fluid collections are identified. There is atherosclerotic calcification of the vertebrobasilar and internal carotid arteries. SINUSES: The visualized paranasal sinuses are clear. The mastoid air cells and middle ear cavities are well pneumatized. ORBITS: The visualized orbits are unremarkable. BONES/SOFT TISSUES: The extracranial soft tissues are unremarkable. The calvarium is intact. No suspicious lytic or sclerotic lesions. CT/CT head/brain wo IV con IMPRESSION: No acute intracranial abnormality. Electronically signed by: Heriberto Stallings MD 09/04/2025 08:18 AM [facility] [place], [place]
== END 2025-09-04 07:21 ==
LOC: HO.CT 07:20
PROVIDERS: PCP Internal Medicine; Visit Provider Psychiatry & Neurology Neurology
DX: G25.2 Other specified forms of tremor (principal)
CPT/HCPCS: 70450

== ENCOUNTER → 2025-09-04 07:22 | Outpatient (BNV) | payer MEDICARE, SELFPAY | PROVIDERS: PCP Internal Medicine; Visit Provider Radiology Diagnostic Radiology | DX: G25.2 Other specified forms of tremor (principal) | CPT/HCPCS: 70450 ==